=== PATIENT | female | born 2000 | race Two or more races ===

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

== ENCOUNTER 2019-01-25 06:10 | Emergency (ER) | payer OTHER ==
[~2019-01-25] VITALS: Ht 157.5 cm; Wt 96.4 kg
[2019-01-25 07:09] LABS: BASO # 0.1 10^3/uL (0.0-0.2); BASO % 0.6 % (0.0-1.0); EOS # 0.1 10^3/uL (0.0-0.50); EOS % 1.3 % (0.0-3.0); HEMATOCRIT 42.5 % (36.0-47.0); HEMOGLOBIN 13.8 g/dl (12.0-15.5); LYMPH # 2.5 10^3/uL (1.5-6.5); LYMPH % 25.4 % (24.0-44.0); MEAN CORPUSCULAR HEMOGLOBIN 28.5 pg (27.0-33.0); MEAN CORPUSCULAR HGB CONC 32.5 g/dl (32.0-36.5); MEAN CORPUSCULAR VOLUME 87.6 fl (80.0-96.0); MONO # 0.8 10^3/uL (0.0-0.8); MONO % 7.5 % (0.0-5.0); NEUTROPHILS # 6.4 10^3/uL (1.8-7.7); NEUTROPHILS % 64.7 % (36.0-66.0); PLATELET COUNT, AUTOMATED 341 10^3/uL (150-450); RED BLOOD COUNT 4.85 10^6/uL (4.00-5.40)
[2019-01-25 08:23] VITALS: BP 133/67
--- NOTE | 2019-01-25 08:26 | REP ---
Emergency first trimester obstetric sonography: History: Vaginal bleeding. Findings: Transabdominal and endovaginal scanning are performed. A sac-like structure is seen in the uterine endometrium with a mean sac size diameter of 4.1 mm. This would correspond with a 8-voow-5-day gestational age estimate. No yolk sac or embryonic pole is visible. There is a hypoechoic cyst 1.9 cm in greatest diameter in the right ovary consistent with corpus luteum. Right ovarian dimensions are 2.3 x 2.1 x 1.9 cm. Left ovary measures 2.1 x 1.4 x 1.3 cm. The left ovary is unremarkable. Doppler flow is normal in both ovaries with resistive indices measured at 0.65 on each side. Uterine dimensions are 8.8 x 4.2 x 4.5 cm. Impression: Small sac-like structure in the uterine endometrium consistent with 4-cqjj-4-day size intrauterine . viability cannot be confirmed. No embryonic pole or yolk sac is observed. Consider followup. Electronically Signed by Sean Khan MD 01/25/2019 01:03 P
== END 2019-01-25 08:39 | disposition home or self-care (01) ==
LOC: M ED 06:10
DX: O26.891 Other specified pregnancy related conditions, first trimester (principal); R10.2 Pelvic and perineal pain; O99.511 Diseases of the respiratory system complicating pregnancy, first trimester; J45.909 Unspecified asthma, uncomplicated; O99.341 Other mental disorders complicating pregnancy, first trimester; F33.9 Major depressive disorder, recurrent, unspecified; F41.9 Anxiety disorder, unspecified; F43.10 Post-traumatic stress disorder, unspecified; O99.611 Diseases of the digestive system complicating pregnancy, first trimester; K21.9 Gastro-esophageal reflux disease without esophagitis; Z88.0 Allergy status to penicillin; Z88.8 Allergy status to other drugs, medicaments and biological substances; Z3A.01 Less than 8 weeks gestation of pregnancy

== ENCOUNTER 2019-02-24 19:58 | Emergency (ER) | payer OTHER ==
[~2019-02-24] VITALS: Ht 157.5 cm; Wt 93.2 kg
[2019-02-24] MEDS ORDERED: MUPI2OI TOP (22:03)
[2019-02-24 22:24] VITALS: BP 134/79
== END 2019-02-24 22:26 | disposition home or self-care (01) ==
LOC: M ED 19:58
DX: S91.311A Laceration without foreign body, right foot, initial encounter (principal); S90.811A Abrasion, right foot, initial encounter; W26.8XXA Contact with other sharp object(s), not elsewhere classified, initial encounter; Y92.830 Public park as the place of occurrence of the external cause; Z88.0 Allergy status to penicillin; Z88.8 Allergy status to other drugs, medicaments and biological substances

== ENCOUNTER 2019-03-27 17:38 | Emergency (ER) | payer OTHER ==
[~2019-03-27] VITALS: Ht 154.9 cm; Wt 90.0 kg
[~2019-03-27 17:38] MED LIST changes: +MUPI2OI TOP
[2019-03-27] MEDS ORDERED: PREN1TAB14 (17:45)
[2019-03-27 18:36] LABS: BASO % 0.3 % (0.0-1.0); EOS # 0.1 10^3/uL (0.0-0.50); EOS % 0.4 % (0.0-3.0); HEMATOCRIT 37.9 % (36.0-47.0); HEMOGLOBIN 12.8 g/dl (12.0-15.5); LYMPH # 2.2 10^3/uL (1.5-6.5); LYMPH % 18.9 % (24.0-44.0); MEAN CORPUSCULAR HEMOGLOBIN 28.7 pg (27.0-33.0); MEAN CORPUSCULAR HGB CONC 33.8 g/dl (32.0-36.5); MONO # 0.7 10^3/uL (0.0-0.8); MONO % 6.2 % (0.0-5.0); NEUTROPHILS # 8.5 10^3/uL (1.8-7.7); NEUTROPHILS % 73.7 % (36.0-66.0); PLATELET COUNT, AUTOMATED 300 10^3/uL (150-450); RED BLOOD COUNT 4.46 10^6/uL (4.00-5.40); WHITE BLOOD COUNT 11.5 10^3/uL (4.0-10.0)
[2019-03-27 19:09] LABS: BLOOD UREA NITROGEN 4 MG/DL (7-18); CALCIUM LEVEL 8.4 MG/DL (8.5-10.1); CARBON DIOXIDE LEVEL 24 MEQ/L (21-32); CHLORIDE LEVEL 108 MEQ/L (98-107); CREATININE FOR GFR 0.49 MG/DL (0.55-1.30); GLUCOSE, FASTING 91 MG/DL (70-100); HCG, SERUM QUANTITATIVE 52196 MIU/ML; SODIUM LEVEL 140 MEQ/L (136-145)
--- NOTE | 2019-03-27 19:39 | REPVR ---
EXAM: US First Trimester, Transabdominal EXAM DATE/TIME: 03/27/2019 6:38 PM CLINICAL HISTORY: 18 years old, female; Lmp or gestational age (in weeks): [id number]; Other: Vag bleeding; TECHNIQUE: Imaging protocol: Real-time transabdominal obstetrical ultrasound of the maternal pelvis and a first trimester , less than 14 weeks 0 days, with image documentation. COMPARISON: No relevant prior studies available. FINDINGS: GESTATION: Gestation: A single intrauterine gestational sac with fetus is identified. Evaluation of anatomy is limited by age and the absence of a complete anatomic survey. Heart rate: heart rate is 162 bpm. Placenta: No subchorionic bleed. The placenta is anterior, without evidence of placenta previa. Amniotic fluid: Amniotic subjectively normal for gestational age. Head, face, and neck: The transverse diameter of the lateral ventricle of the brain is 0.49 cm. BIOMETRY: Estimated gestational age: The estimated gestational age is 13 weeks 6 days. Head circumference: The head circumference is 8.9 cm. Abdominal circumference: The abdominal circumference is 7.03 cm. Femur length: The femoral length is 1.26 cm. The femur length is 1.11 cm. MATERNAL: Uterus: No visualized uterine mass. Cervix: The cervical length is 3.18 cm. Evaluation of the cervix is limited. Right adnexa: No mass visualized. Limited evaluation. Left adnexa: No mass visualized. Limited evaluation. Intraperitoneal: No intraperitoneal free fluid. IMPRESSION: 1. A single viable intrauterine fetus is identified. 2. The estimated gestational age is 13 weeks 6 days. 3. Follow-up second trimester ultrasonography is recommended for evaluation of anatomy. Electronically signed by: Jarod Krishna On 03/27/2019 19:39:27 PM
[2019-03-27 21:11] VITALS: BP 129/79
== END 2019-03-27 21:15 | disposition home or self-care (01) ==
LOC: M ED 19:55
DX: N93.0 Postcoital and contact bleeding (principal); Z88.0 Allergy status to penicillin; Z88.8 Allergy status to other drugs, medicaments and biological substances; Z3A.13 13 weeks gestation of pregnancy

== ENCOUNTER → 2019-04-20 | Outpatient (CLI) | payer OTHER ==
[~2019-04-20] MED LIST changes: +PREN1TAB14
--- NOTE | 2019-04-20 15:54 | REP ---
Clinical: with abdominal cramping and vaginal bleeding. Technique: Transabdominal and transvaginal limited obstetrical ultrasound. Findings: Single live intrauterine is appreciated measuring at 16 weeks 6 days gestational age based on LMP with heart rate at 144 beats per minute. Anterior grade 1 placenta noted without placenta previa or abruption. Placental tip is 2.5 cm from the internal os. Amniotic fluid volume is subjectively normal. Cervix measures 3.4 - 3.7 cm in length and a prominent mucus plugs is identified at the internal os although very subtle funneling cannot definitively be excluded. Close clinical observation and reevaluation may be warranted. Impression: 1. Live intrauterine . 2. Cervix measures approximately 3.4 - 3.7 cm in length and appears closed although a prominent mucus plugs identified at the internal os and very subtle funneling cannot definitively be excluded. Close clinical observation and consideration for follow-up ultrasound may be warranted. Electronically Signed by Cody Ayoub MD 04/20/2019 03:32 P
== END ==
LOC: M RAD 14:04
PROVIDERS: ATTEND General Practice
DX: Z34.80 Encounter for supervision of other normal pregnancy, unspecified trimester (principal); Z3A.16 16 weeks gestation of pregnancy

== ENCOUNTER 2019-05-01 21:42 | Emergency (ER) | payer OTHER ==
[~2019-05-01] VITALS: Ht 154.9 cm; Wt 89.1 kg
[2019-05-02] MEDS ORDERED: ACETAMINOPHEN 325 MG TAB PO ONE (00:30)
[2019-05-02] MEDS ORDERED: diazePAM 5 MG TAB PO ONE (00:30)
[2019-05-02] MEDS ORDERED: ROLLMIS8 XX (01:48)
[2019-05-02 01:55] VITALS: BP 117/53
== END 2019-05-02 01:57 | disposition home or self-care (01) ==
LOC: M ED 21:42
DX: O99.89 Other specified diseases and conditions complicating pregnancy, childbirth and the puerperium (principal); M79.605 Pain in left leg; O99.512 Diseases of the respiratory system complicating pregnancy, second trimester; J45.909 Unspecified asthma, uncomplicated; Z88.0 Allergy status to penicillin; Z88.8 Allergy status to other drugs, medicaments and biological substances; Z3A.19 19 weeks gestation of pregnancy

== ENCOUNTER 2019-05-22 18:54 | Outpatient (CLI) | payer OTHER ==
[~2019-05-22] VITALS: Ht 154.9 cm; Wt 90.7 kg
[~2019-05-22 18:54] MED LIST changes: +ROLLMIS8 XX
[2019-05-22 19:14] VITALS: BP 129/74
[2019-05-22 20:03] LABS: HEMATOCRIT 36.1 % (36.0-47.0); HEMOGLOBIN 12.3 g/dl (12.0-15.5); MEAN CORPUSCULAR HEMOGLOBIN 28.5 pg (27.0-33.0); MEAN CORPUSCULAR HGB CONC 34.1 g/dl (32.0-36.5); MEAN CORPUSCULAR VOLUME 83.6 fl (80.0-96.0); PLATELET COUNT, AUTOMATED 339 10^3/uL (150-450); RED BLOOD COUNT 4.32 10^6/uL (4.00-5.40); WHITE BLOOD COUNT 13.6 10^3/uL (4.0-10.0)
[2019-05-22] MEDS ORDERED: MAPA500T2 PO (20:35)
--- NOTE | 2019-05-22 22:20 | HPE ---
DATE OF ADMISSION: 05/22/2019 18-year-old 1, para 0 at 21 and one weeks' had an push her in the abdomen 7 hours ago and came in with decreased movement. Risk factors BMI is 38.4, history of depression and asthma. LABORATORY DATA O+, HIV negative, hep negative, RPR negative, rubella immune. Varicella nonimmune. Urine negative. G and C are negative. Urine negative. One hour glucose is 81. PHYSICAL EXAMINATION: On examination no distress. Symphysis fundus height is appropriate. heart sounds are noted. No contractions. No vaginal bleeding or loss. Blood work: Her Betke Kleihauer is negative. Her CBC is normal. She does have a slight elevated white count, does have a history of bacterial vaginosis and being treated. Blood pressure 129/74, respirations 18, pulse 104. Temperature 97.7. After an hour being here with no evidence of contractions and adequate movement, the patient was counseled regarding decreased movement, premature rupture of membranes, labor and bleeding, when to call the provider. [facility] cent[facility] on June 09, 2019. She is encouraged to keep that appointment. All questions were answered. 20-minute discussion. Discharged undelivered.
[2019-07-10] MEDS ORDERED: ONDA-83 PO (15:34)
== END 2019-05-22 21:39 | disposition home or self-care (01) ==
LOC: EDBD → M LDO 18:54
PROVIDERS: ATTEND Obstetrics & Gynecology
DX: O36.8120 Decreased fetal movements, second trimester, not applicable or unspecified (principal); W51.XXXA Accidental striking against or bumped into by another person, initial encounter; Y92.89 Other specified places as the place of occurrence of the external cause; Y93.89 Activity, other specified; Y99.8 Other external cause status; Z3A.21 21 weeks gestation of pregnancy
CPT/HCPCS: 36415; 85027; 85460; G0378; G0463

== ENCOUNTER 2019-06-08 20:08 | Outpatient (CLI) | payer OTHER ==
[~2019-06-08] VITALS: Ht 154.9 cm; Wt 91.3 kg
[~2019-06-08 20:08] MED LIST changes: +MAPA500T2 PO
[2019-06-08 20:24] VITALS: BP 129/64
[2019-06-08 21:04] LABS: APPEARANCE, URINE CLEAR (CLEAR); BACTERIA, URINE AUTO NEGATIVE (NEGATIVE); BILIRUBIN, URINE AUTO NEGATIVE (NEGATIVE); BLOOD, URINE BLOOD NEGATIVE (NEGATIVE); COLOR, URINE YELLOW (YELLOW); GLUCOSE, URINE (UA) AUTO 1+ mg/dL (NEGATIVE); KETONE, URINE AUTO TRACE mg/dL (NEGATIVE); LEUKOCYTE ESTERASE, URINE AUTO NEGATIVE (NEGATIVE); MUCUS, URINE SMALL (NEGATIVE); NITRITE, URINE AUTO NEGATIVE (NEGATIVE); PROTEIN, URINE AUTO NEGATIVE (NEGATIVE); RBC, URINE AUTO 1 /HPF (0-3); SPECIFIC GRAVITY URINE AUTO 1.013 (1.002-1.035); SQUAMOUS EPITHELIAL CELL UR AU 3 /HPF (0-6); UROBILINOGEN, URINE AUTO 0.2 mg/dL (0.0-2.0); WBC, URINE AUTO 2 /HPF (0-3)
--- NOTE | 2019-06-08 21:27 | IPNPDOC ---
Text Note Date of Service The patient was seen on 06/08/19. NOTE patient is a 19 yo g1 @ 23+4wks gestation presents with concern for left sided abdominal cramping x 2 days. yesterday she had pain on her upper abdomen and today cramping is lower in her perineal area. denies LOF/VB. +FM. complicated by morbid obesity and hip pain. denies fever. also report having difficulty having BM about every other day. 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 no bulge noted no e/o of hernia. pelvic exam: normal external genitalia vagina: white discharge, no lesion, nt cervix visually closed, no lession,nt wet prep: neg clue cells/trich rebeca: neg yeast/hyphae doptones: 140's toco: quiet a/p patient is a 23+4wks with musculoskeletal pain, exam not concerning for labor or infection. labor precautions given. encourage increased fluids and stool softener. f/u with clinic as scheduled. DO Kate VS,Renny, I+O VS, Edsone, I+O Vital Signs Date Time Temp Pulse Resp B/P (MAP) Pulse Ox O2 Delivery O2 Flow Rate FiO2 06/08/19 20:24 98.6 120 129/64 (85) RASHMI MATT DO Jun 08, 2019 21:19
[2019-07-10] MEDS ORDERED: ONDA-83 PO (15:34)
== END 2019-06-08 21:09 | disposition home or self-care (01) ==
LOC: EDBD → M LDO 20:08
PROVIDERS: ATTEND Obstetrics & Gynecology
DX: O26.892 Other specified pregnancy related conditions, second trimester (principal); Z3A.23 23 weeks gestation of pregnancy; O99.212 Obesity complicating pregnancy, second trimester
CPT/HCPCS: 59025; 81001; 87086; G0463

== ENCOUNTER 2019-07-10 14:35 | Outpatient (CLI) | payer OTHER ==
[~2019-07-10] VITALS: Ht 152.4 cm; Wt 92.7 kg
[2019-07-10 15:02] VITALS: BP 130/71
[2019-07-10 15:22] VITALS: BP 130/74
[2019-07-10] MEDS ORDERED: NS 1,000 ML IV SCH (15:30)
[2019-07-10] MEDS ORDERED: NS 1,000 ML IV ONE (15:30)
[2019-07-10] MEDS ORDERED: ONDA4TAB5 PO (15:34)
[2019-07-10 16:26] LABS: HEMATOCRIT 35.1 % (36.0-47.0); MEAN CORPUSCULAR HEMOGLOBIN 29.2 pg (27.0-33.0); MEAN CORPUSCULAR HGB CONC 34.2 g/dl (32.0-36.5); MEAN CORPUSCULAR VOLUME 85.4 fl (80.0-96.0); PLATELET COUNT, AUTOMATED 288 10^3/uL (150-450); RED BLOOD COUNT 4.11 10^6/uL (4.00-5.40); WHITE BLOOD COUNT 13.1 10^3/uL (4.0-10.0)
[2019-07-10 16:27] VITALS: BP 131/82
[2019-07-10 16:46] LABS: ALBUMIN 2.8 GM/DL (3.2-5.2); ALT/SGPT 17 U/L (12-78); BILIRUBIN,TOTAL 0.2 MG/DL (0.2-1.0); BLOOD UREA NITROGEN 1 MG/DL (7-18); CALCIUM LEVEL 8.7 MG/DL (8.5-10.1); CARBON DIOXIDE LEVEL 22 MEQ/L (21-32); CHLORIDE LEVEL 109 MEQ/L (98-107); CREATININE FOR GFR 0.42 MG/DL (0.55-1.30); GLUCOSE, FASTING 80 MG/DL (70-100); POTASSIUM SERUM 3.8 MEQ/L (3.5-5.1); SODIUM LEVEL 140 MEQ/L (136-145); TOTAL PROTEIN 6.3 GM/DL (6.4-8.2)
[2019-07-10 17:50] VITALS: BP 134/76
[2019-07-10] MEDS ORDERED: METOCLOPRAMIDE INJ 10MG/2ML VIAL (J2765) IV ONE (18:15)
[2019-07-10 18:52] VITALS: BP 111/51
--- NOTE | 2019-07-13 09:32 | IPN ---
DATE OF SERVICE: 07/10/2019 This lady is a 18-year-old, 1, para 0, last menstrual period (LMP) 12/12/2018, expected date of confinement (EDC) by early ultrasound at 7 weeks 5 days of 09/29/2018. Her risk factors is she had obesity with her body mass index (BMI) at 38.4, asthma, history of depression, she self refers to behavioral health, and she has cholelithiasis with upper quadrant pain and had seen general surgery who recommended she have her cholecystectomy and she is Varicella nonimmune. Presently, she says she has allergies to PENICILLIN and MIRALAX. She is taking antinausea medication which she says does not work. Her lab values show she is O positive, HIV negative, hepatitis negative, RPR negative, rubella immune, Varicella nonimmune. Urine was negative. Gonorrhea and Chlamydia were negative. Her early one hour glucose was 81. Presently, she has come in because of nausea and vomiting and inability to keep anything down. Vital Signs: Her blood pressure is 111/51, respirations 16, pulse 100, temperature 99.1. Initial urine was 1.015, pH 6, 2+ ketones. She says the Zofran, Phenergan and the Reglan do not work for her. Otherwise, she appears to be in no acute distress; however, she has not had anything to eat or drink and she is significantly behind in fluids. The rest of the examination is unremarkable. She is normocephalic, atraumatic. Neck full range of motion. Pupils equal and reactive to light. Distal pulses are symmetric. No evidence of deep vein thrombosis (DVT), pulmonary embolism (PE) or superficial phlebitis. Chest is clear bilaterally to bases. No rashes, lesions or pruritus. No arthralgia or myalgia. No complaint of cough, wheeze, shortness of breath. She does have nausea. She has had some vomiting. No diarrhea or constipation. She presently has a Category 1 strip. Denies any vaginal loss or bleeding. She has moderate variability on her nonstress test. Baseline is normal. Accelerations are noted. No decelerations. No contractions. We reviewed with her the plan of care. We elected to give her Krames low fat diet. She says it does not matter, no matter what she takes she is going to throw it up whether she follows the diet or not. We did explain to her that she is significantly dehydrated and that she has ketones in her urine and that it will take at least one bag if not two in order to flush her system of ketones. We also offered her some Reglan and some crackers and water in order to see if she keeps that down. She expressed wanting to order a salad, which we said that is fine. However, on returning, she was eating Swiss fries and was throwing them up because they did not agree with her. Her hemoglobin is 12.0, hematocrit 35.1 and platelets are 288. Her chemistry indicates that her sodium and potassium are normal. Her chloride is low at 109. BUN is low at 1. Alkaline phosphatase is elevated, probably related to her gallstones. Albumin globulin ratio low. We explained to her that we will flush her system with normal saline. Can administer some Reglan in order to help with the nausea and vomiting. When she is feeling better, we can discharge her to followup with her provider and/or continue with the proposed Krames low fat diet. The patient expressed understanding and we await her urine to be clear. In summary, we have a 28 plus week gestation with cholecystitis and nausea and vomiting secondary to dehydration.
== END 2019-07-10 22:30 | disposition home or self-care (01) ==
LOC: M LDO 14:35
PROVIDERS: ATTEND Obstetrics & Gynecology
DX: O21.2 Late vomiting of pregnancy (principal); O99.283 Endocrine, nutritional and metabolic diseases complicating pregnancy, third trimester; E86.0 Dehydration; O99.613 Diseases of the digestive system complicating pregnancy, third trimester; K81.9 Cholecystitis, unspecified; Z3A.28 28 weeks gestation of pregnancy
CPT/HCPCS: 59025; 80053; 85027; 96361; 96374; G0378; G0463; J2765

== ENCOUNTER 2019-07-20 11:09 | Outpatient (CLI) | payer OTHER ==
[~2019-07-20] VITALS: Ht 152.4 cm; Wt 90.4 kg
[~2019-07-20 11:09] MED LIST changes: +ONDA4TAB5 PO
[2019-07-20 11:26] VITALS: BP 120/73
[2019-07-20] MEDS ORDERED: MAPA500T2 PO (11:33)
[2019-07-20 12:33] LABS: APPEARANCE, URINE CLEAR (CLEAR); BACTERIA, URINE AUTO 1+ (NEGATIVE); BILIRUBIN, URINE AUTO NEGATIVE (NEGATIVE); BLOOD, URINE BLOOD NEGATIVE (NEGATIVE); COLOR, URINE YELLOW (YELLOW); GLUCOSE, URINE (UA) AUTO NEGATIVE (NEGATIVE); KETONE, URINE AUTO 1+ mg/dL (NEGATIVE); LEUKOCYTE ESTERASE, URINE AUTO TRACE (NEGATIVE); MUCUS, URINE SMALL (NEGATIVE); NITRITE, URINE AUTO NEGATIVE (NEGATIVE); PROTEIN, URINE AUTO NEGATIVE (NEGATIVE); RBC, URINE AUTO 2 /HPF (0-3); SPECIFIC GRAVITY URINE AUTO 1.013 (1.002-1.035); SQUAMOUS EPITHELIAL CELL UR AU 5 /HPF (0-6); UROBILINOGEN, URINE AUTO 0.2 mg/dL (0.0-2.0); WBC, URINE AUTO 4 /HPF (0-3)
--- NOTE | 2019-07-20 13:38 | IPNPDOC ---
Text Note Date of Service The patient was seen on 07/20/19. NOTE patient is a 19 yo G1 @ 29+6wks presents for lower abdominal cramping x 2 days. report increased discharge. denies LOF/VB. +FM. vitals:normal nad abd: gravid, soft, nt fht: reactive toco: quiet speculum exam: white discharge, not lesion, nt cervix visually closed CE: closed/long/high, posterior wet prep: neg clue cells/trich rebeca: neg buds/hyphae a/p patient @ 29+6wks, normal exam today. no e/o infection or labor. UA with c&s pending. f/u in clinic as scheduled. Kate, VS,Renny, I+O VS, Renny, I+O Vital Signs Date Time Temp Pulse Resp B/P (MAP) Pulse Ox O2 Delivery O2 Flow Rate FiO2 07/20/19 11:26 134 120/73 (89) 07/20/19 11:25 98.4 20 RASHMI MATT DO Jul 20, 2019 13:38
== END 2019-07-20 12:22 | disposition home or self-care (01) ==
LOC: M LDO 11:09
PROVIDERS: ATTEND Obstetrics & Gynecology
DX: O26.893 Other specified pregnancy related conditions, third trimester (principal); N89.8 Other specified noninflammatory disorders of vagina
CPT/HCPCS: 81001; 87086; G0378; G0463

== ENCOUNTER → 2019-08-13 | Outpatient (CLI) | payer OTHER ==
--- NOTE | 2019-08-13 14:16 | REP ---
Clinical: well-being Comparison: 04/20/2019 . Findings: Examination demonstrates a single live intrauterine in cephalic presentation. motion is identified by technologist. Placenta is noted anterior and grade I I I without evidence for placenta previa or abruption. Amniotic fluid volume is normal. Cervix appears closed. No evidence for nuchal cord. Gestational age by LMP 33 weeks 2 days with ALYSSA 09/29/2019 . FHR equals 147 beats per minute. Biophysical profile score: 8/8 Amniotic fluid index: 13.8 cm Umbilical cord SD ratio: 2.48 Impression: Single live advanced gestation in cephalic presentation. Biophysical profile score and amniotic fluid volume are normal. Electronically Signed by Cody Ayoub MD 08/13/2019 02:07 P
== END ==
LOC: M RAD 13:26
PROVIDERS: ATTEND Obstetrics & Gynecology
DX: O24.419 Gestational diabetes mellitus in pregnancy, unspecified control (principal); Z3A.33 33 weeks gestation of pregnancy

== ENCOUNTER 2019-08-14 19:45 | Outpatient (CLI) | payer OTHER ==
[~2019-08-14] VITALS: Ht 152.4 cm; Wt 95.0 kg
[2019-08-14 19:59] VITALS: BP 136/81
--- NOTE | 2019-08-14 21:11 | IPNPDOC ---
Text Note Date of Service The patient was seen on 08/14/19. NOTE patient is a 19 yo G1 @ 33+3wks gestation presents with concern for lower abdominal cramping x 2 days. report comes in waves and goes away on its own. worse when she is up and about. denies LOF/VB. +FM. vitals: normal NAD abd: gravid, soft, mild tenderness to palpation above pubic symphysis LE: no edema/erythema/tenderness speculum exam: white frothy discharge cervix without bleeding, no lesion, visually closed ce: closed/long/high, soft, posterior fht: 145/mod miguel/pos accel/no decel toco: occasional ctx which patient did not feel wet prep: pos. clue cells. neg trich rebeca: neg buds/neg hyphae dipped UA: neg for infection a/p patient @33+3wks with normal cramping, not in labor. exam shows clue cells. will treat for BV. give one dose tonight. rest of medications to be picked up at [place]. DO Kate VSRenny, I+O VS, Edsone, I+O Vital Signs Date Time Temp Pulse Resp B/P (MAP) Pulse Ox O2 Delivery O2 Flow Rate FiO2 08/14/19 19:59 98.4 110 18 136/81 (99) RASHMI MATT DO Aug 14, 2019 21:10
[2019-08-14] MEDS ORDERED: metroNIDAZOLE (FLAGYL) 500 MG TAB PO ONE (22:00)
== END 2019-08-14 21:28 | disposition home or self-care (01) ==
LOC: M LDO 19:45
PROVIDERS: ATTEND Obstetrics & Gynecology
DX: O26.893 Other specified pregnancy related conditions, third trimester (principal); R10.30 Lower abdominal pain, unspecified; O23.599 Infection of other part of genital tract in pregnancy, unspecified trimester; B96.89 Other specified bacterial agents as the cause of diseases classified elsewhere; Z3A.33 33 weeks gestation of pregnancy
CPT/HCPCS: 59025; G0378; G0463

== ENCOUNTER 2019-08-30 14:13 | Outpatient (CLI) | payer OTHER ==
[~2019-08-30] VITALS: Ht 152.4 cm; Wt 94.9 kg
[2019-08-30 14:46] VITALS: BP 134/75
[2019-08-30 15:59] LABS: APPEARANCE, URINE HAZY (CLEAR); BACTERIA, URINE AUTO 1+ (NEGATIVE); BILIRUBIN, URINE AUTO NEGATIVE (NEGATIVE); BLOOD, URINE BLOOD NEGATIVE (NEGATIVE); COLOR, URINE YELLOW (YELLOW); GLUCOSE, URINE (UA) AUTO NEGATIVE (NEGATIVE); KETONE, URINE AUTO TRACE mg/dL (NEGATIVE); LEUKOCYTE ESTERASE, URINE AUTO TRACE (NEGATIVE); NITRITE, URINE AUTO NEGATIVE (NEGATIVE); PROTEIN, URINE AUTO NEGATIVE (NEGATIVE); RBC, URINE AUTO 2 /HPF (0-3); SPECIFIC GRAVITY URINE AUTO 1.027 (1.002-1.035); SQUAMOUS EPITHELIAL CELL UR AU 8 /HPF (0-6); UROBILINOGEN, URINE AUTO 0.2 mg/dL (0.0-2.0); WBC, URINE AUTO 5 /HPF (0-3)
[2019-08-30] MEDS ORDERED: INSUN SC (16:12)
[2019-08-30] MEDS ORDERED: INSUR SC ×2 (16:12)
[2019-08-30 16:16] VITALS: BP 119/76
--- NOTE | 2019-08-30 17:02 | IPNPDOC ---
Text Note Date of Service The patient was seen on 08/30/19. NOTE S: Ms. Serrano is a 19yo at 35+5wks gestation (by 1st trimester US) presents to LND triage with c/o cramping and malodorous discharge/mucous. She was evaluated in the OB clinic today for APFT and COB visit. She had a reactive NST then and her appointment was uneventful. She states she did mention her concerns, but was not evaluated for them then and she is concerned. She does reports +FM, denies LOF/VB/CTX. I did observe her urine sample, which was very dark yellow, and I asked about her hydration status. She reports that she does not like to drink water and has only had a few cups today. Ms. Serrano's is complicated by A2GDM on insulin, obesity, depression, asthma, and gallstones. O: VSS FHR 150s, moderate variability, + accels, no decels noted CTX: few noted on tracing (pt did not notice any); uterine irritability present, but resolving with hydration SSE: Cervix visually closed; some white discharge and clear mucous present; sample collected for WP and GC Urine: dark yellow - sent to lab for UA/UC WP: no clue cells or yeast present UA: +ketones, trace leukocytes, no nitrites, + WBCs A: Reactive NST, not in labor, no yeast/clue cells; Dehydration, poor hygiene P: Discharged home with PTL/danger precautions Discussed at length importance of hydration and nutrition. Encouraged pt to purchase reusable 1L bottle to frequently refill throughout the day. Discussed importance of adequate hygiene; provided pt with peribottle and instructions for use reviewed GS scheduled for [id number]; f/u APFT and COB in 1 week VS,Fishbone, I+O VS, Fishbone, I+O Vital Signs Date Time Temp Pulse Resp B/P (MAP) Pulse Ox O2 Delivery O2 Flow Rate FiO2 08/30/19 16:16 97.8 78 18 119/76 (90) 08/30/19 14:46 99 MICHELLE FISHER CNM Aug 30, 2019 17:02
[2019-08-30 17:29] LABS: CHLAMYDIA DNA AMPLIFICATION NEGATIVE (NEGATIVE); GC DNA AMPLIFICATION NEGATIVE (NEGATIVE)
== END 2019-08-30 16:21 | disposition home or self-care (01) ==
LOC: EDBD → M LDO 14:13
PROVIDERS: ATTEND Registered Nurse Maternal Newborn
DX: O24.414 Gestational diabetes mellitus in pregnancy, insulin controlled (principal); O99.213 Obesity complicating pregnancy, third trimester; E66.9 Obesity, unspecified; O99.343 Other mental disorders complicating pregnancy, third trimester; F32.9 Major depressive disorder, single episode, unspecified; O99.513 Diseases of the respiratory system complicating pregnancy, third trimester; J45.909 Unspecified asthma, uncomplicated; O99.283 Endocrine, nutritional and metabolic diseases complicating pregnancy, third trimester; E86.0 Dehydration; R46.0 Very low level of personal hygiene; Z3A.35 35 weeks gestation of pregnancy
CPT/HCPCS: 59025; 81001; 87086; 87210; 87491; 87591; G0378; G0463

== ENCOUNTER 2019-08-31 21:58 | Outpatient (CLI) | payer OTHER ==
[~2019-08-31] VITALS: Ht 152.4 cm; Wt 94.7 kg
[~2019-08-31 21:58] MED LIST changes: +INSUN SC; +INSUR SC
[2019-08-31 22:17] VITALS: BP 146/85
[2019-08-31] MEDS ORDERED: LR 1,000 ML IV ONE (22:30)
[2019-08-31 22:54] LABS: BASO % 0.3 % (0.0-1.0); EOS % 0.3 % (0.0-3.0); HEMATOCRIT 38.2 % (36.0-47.0); HEMOGLOBIN 12.2 g/dl (12.0-15.5); LYMPH # 2.7 10^3/uL (1.5-5.0); LYMPH % 17.3 % (24.0-44.0); MEAN CORPUSCULAR HEMOGLOBIN 26.5 pg (27.0-33.0); MEAN CORPUSCULAR HGB CONC 31.9 g/dl (32.0-36.5); MEAN CORPUSCULAR VOLUME 82.9 fl (80.0-96.0); MONO % 6.6 % (0.0-5.0); NEUTROPHILS # 11.7 10^3/uL (1.5-8.5); NEUTROPHILS % 74.7 % (36.0-66.0); PLATELET COUNT, AUTOMATED 263 10^3/uL (150-450); RED BLOOD COUNT 4.61 10^6/uL (4.00-5.40); WHITE BLOOD COUNT 15.6 10^3/uL (4.0-10.0)
[2019-08-31 22:56] VITALS: BP 144/67
[2019-08-31 23:26] LABS: ALBUMIN 2.9 GM/DL (3.2-5.2); ALT/SGPT 16 U/L (12-78); BILIRUBIN,TOTAL 0.2 MG/DL (0.2-1.0); BLOOD UREA NITROGEN 5 MG/DL (7-18); CALCIUM LEVEL 8.5 MG/DL (8.5-10.1); CARBON DIOXIDE LEVEL 22 MEQ/L (21-32); CHLORIDE LEVEL 109 MEQ/L (98-107); CREATININE FOR GFR 0.63 MG/DL (0.55-1.30); GLUCOSE, FASTING 95 MG/DL (70-100); SODIUM LEVEL 140 MEQ/L (136-145); TOTAL PROTEIN 6.6 GM/DL (6.4-8.2)
[2019-09-01 01:32] VITALS: BP 135/71
[2019-09-01 04:29] VITALS: BP 133/79
--- NOTE | 2019-09-01 04:36 | IPNPDOC ---
Text Note Date of Service The patient was seen on 09/01/19. NOTE patient is a 19 yo G1 @ 36WKS gestation presents to triage with regular cont ractions. denies LOF/VB. +FM. vitals: mild range at beginning with normal repeats. nad abd: gravid, soft, nt, cephalic by lj le: no edema/erythema/tenderness fht: 130/mod miguel/pos accel/no decel toco: ctx q 3-5mins ce: 50/-1, (unchanged over 6hrs while in triage) a/p patient is @ 36wks, not in labor. discussed s/s to come back for recheck. f/u with scheduled clinic visits otherwise. VS,Fishbone, I+O VS, Fishbone, I+O Laboratory Tests 08/31/19 22:47 Vital Signs Date Time Temp Pulse Resp B/P (MAP) Pulse Ox O2 Delivery O2 Flow Rate FiO2 08/31/19 22:56 100 18 144/67 (92) 08/31/19 22:17 98.5 RASHMI MATT DO Sep 01, 2019 04:36
== END 2019-09-01 04:40 | disposition home or self-care (01) ==
LOC: EDBD → M LDO 21:58 → M LDI 22:29 → UNDOADMIN 22:29 → M LDI 22:29 → M LDO 09-01 04:40 → UNDODISIN 09-01 04:40
PROVIDERS: ATTEND Obstetrics & Gynecology
DX: O60.03 Preterm labor without delivery, third trimester (principal); Z3A.36 36 weeks gestation of pregnancy
CPT/HCPCS: 36415; 59025; 80053; 85025; 86850; 86900; 86901; G0378; G0463

== ENCOUNTER 2019-09-02 11:51 | Outpatient (CLI) | payer OTHER ==
[~2019-09-02] VITALS: Ht 152.4 cm; Wt 97.0 kg
[2019-09-02] MEDS ORDERED: LACTATED RINGER'S 1000 ML IV STA (12:30)
[2019-09-02] MEDS ORDERED: BUTORPHANOL 2 MG/ML INJ (J0595) IV PRN (12:30)
[2019-09-02] MEDS ORDERED: LR 1,000 ML IV SCH (13:00)
--- NOTE | 2019-09-02 13:07 | HPEPDOC ---
Obstetrical History & Physical General Date of Admission 09/02/2019 History of Present Illness Domo is a 19yo with SIUP at 36w1d by lmp c/w 7wk u/s presenting with painful regular ctx. She was seen in L&D triage on Tuesday and had no cervical policy change clerk 6hr, /[address] Love. She states that since that time, ctx spaced out for quite a while, but over the last few hours have become closer together and more painful. No LOF, no vaginal bleeding. Good movement. No f/c/n/v/CP/SOB. Notably, patient has A2GDM and last took her blood glucose level and last gave herself insulin yesterday morning. Chief Complaint: Contractions, pre-term Information Provided By: Patient Care Care: Good Care Dating Final EDC: Sep 29, 2019 Final EDC by: LMP, 1st trimester (US) Antepartum Course Diagnos(e)s A2GDM requiring insulin, obesity with starting BMI 38, mild-intermittent asthma, depression seeing , varicella non-immune, gallstones Height (inches): 62 Pre- weight (lbs.): 210 Admission Weight (lbs.): 207 Change in Weight (lbs.): -3 Past Medical History Past Obstetrical History : Past Obstetrical History: Primgravida SHANK TAPER History: No pertinent history Past Medical History Medical History Obesity with starting BMI 38, mild-intermittent asthma, depression seeing , gallstones Surgical History: Denies/None Family History Significant Family History: No pertinent family hx Social History Marital Status: Family situation: Spouse/partner home Psychosocial History: Depression * Smoker: non-smoker Alcohol: Denies Drugs: denies Imunizations Tdap status: current Influenza Status: declined Allergies Coded Allergies: Penicillins (Verified Allergy, Intermediate, hives, 05/01/19) latex (Verified Allergy, Mild, itching, 08/30/19) pt reports itching with certain latex products polyethylene glycol 3350 (Verified Adverse Reaction, Mild, vomit, 05/01/19) Medications Scheduled Acetaminophen (Mapap) 500 Mg Tablet, 1,000 MG PO PRN Insulin Human NPH (Novolin N) 100 Unit/1 Ml Vial, 16 UNITS SC QAM Insulin Human Regular (Novolin R) 100 Unit/1 Ml Vial, 8 UNITS SC QAM Insulin Human Regular (Novolin R) 100 Unit/1 Ml Vial, 6 UNITS SC QPM Miscellaneous Medications Vits96/Iron Fum/Folic ( Tablet) 1 Each Tablet Physical Examination Physical Examination GENERAL: Alert and oriented times three. ABDOMEN: Gravid and non-tender to touch. FETUS: Is vertex (VTX) by sterile vaginal examination (SVE) EXTREMITIES: No edema Pertinent Laboratoy Data Blood Type: O+ RBC Antibody Screen: Negative HIV: Negative Hepatitis B: Negative ( ) Hepatitis C: Unknown Rapid Plasma Reagin: Nonreactive Rubella: Immune Varicella: Nonreactive Chlamydia/Gonorrhea: Unknown Group B Streptococcus: Negative Quad Screen Test: Negative ([id number] wnl, male fetus) Cystic Fibrosis: Negative Anatomy Ultrasound Ultrasound Date: May 15, 2019 Placenta Location: Anterior Normal Anatomy: Yes Placenta Previa: No Steroid Therapy Steroid Therapy: No Vaginal Examination Dilation: 4 cm Effacement: 70% Station: -2 Cervical Consistency: Medium Cervical Position: Middle Presentation: Cephalic presentation Assessment Heart Rate (FHR): 140 Variability: Moderate Accelerations: Positive Decelerations: None Tocometer Contractions: Yes Frequency: irregular, every 2-5 min. Duration: greater than 60 seconds Strength: palpated as moderate Assessment/Plan Assessment Domo is a 19yo with SIUP at 36w1d by lmp c/w 7wk u/s in latent labor based on SCE 4/75/-2 which is a change from 3/50/-1 about 48hr prior. Cat I FHRT, irregular ctx pattern q1-5min. Cephalic by SCE. Initial bp was mild range 90's diastolic which now meets criteria for GHTN based on initial elevated bp on Tuesday. No sx of pre-E. GBS negative. It is concerning that patient has not checked her glucose level or given herself insulin in more than 24hr. PMhx/ course significant for: A2GDM requiring insulin, obesity with starting BMI 38, mild-intermittent asthma, depression seeing BH, varicella non- immune, gallstones Plan Admit and orient. Sales Representative Education Courses and consent. Diet: clear liquids Group B Streptococcus (GBS) negative Labs and intravenous (IV) per unit protocol. Also urine protein/creatinine and pre-E profile. And G/C DNA. Lactated Ringers (LR): Bolus 1000 mL, then at 125 mL/hr. Betamethasone 12mg IM x1 Discussed with patient that because she is pre-term, I cannot augment her labor unless there are signs of NRFHT. Otherwise, she must progress on her own. Fingerstick glucose levels q2hr in latent labor and q1hr in active labor Stadol 2mg IV q4hr prn pain. If she progresses into active labor, she will be a candidate for epidural. MD Nicole Bush Katrina D MD Sep 02, 2019 13:02
[2019-09-02] MEDS ORDERED: BETAMETHASONE SOLUSPAN 6MG/ML INJ 5ML (J0702) IM SCH (14:00)
[2019-09-02 14:09] LABS: HEMATOCRIT 35.8 % (36.0-47.0); HEMOGLOBIN 11.8 g/dl (12.0-15.5); MEAN CORPUSCULAR HEMOGLOBIN 27.2 pg (27.0-33.0); MEAN CORPUSCULAR VOLUME 82.5 fl (80.0-96.0); PLATELET COUNT, AUTOMATED 243 10^3/uL (150-450); RED BLOOD COUNT 4.34 10^6/uL (4.00-5.40); WHITE BLOOD COUNT 13.9 10^3/uL (4.0-10.0)
[2019-09-02 14:30] LABS: TOTAL PROTEIN,RANDOM URINE 26.1 MG/DL (0.0-12.0)
[2019-09-02 14:41] LABS: ALT/SGPT 17 U/L (12-78); BILIRUBIN,TOTAL 0.3 MG/DL (0.2-1.0); CREATININE FOR GFR 0.65 MG/DL (0.55-1.30); LDH LACTATE DEHYDROGENASE 259 U/L (84-246); URIC ACID 4.2 MG/DL (2.6-6.0)
[2019-09-02 15:35] LABS: CHLAMYDIA DNA AMPLIFICATION NEGATIVE (NEGATIVE); GC DNA AMPLIFICATION NEGATIVE (NEGATIVE)
--- NOTE | 2019-09-02 16:25 | IPNPDOC ---
Text Note Date of Service The patient was seen on 09/02/19. NOTE Intrapartum Note Patient reports her ctx are very strong and she is miserable, but there is still no regular pattern. Her mother would like to know if she has dilated at all b ecause she "needs to leave for [facility]". Patient desires to eat. 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 I am unable to augment since she is pre-term Consistent carb diet written for Glucose fingersticks changed to QID (fasting and 1hr postprandial) Will continue to observe overnight and re-evaluate in the morning Stadol 2mg q4hr prn Dr. Analisa Rivera MD VS,Renny, I+O VS, Renny, I+O Laboratory Tests 09/02/19 13:43 Analisa Rivera MD Sep 02, 2019 16:25
[2019-09-03 04:01] VITALS: BP 116/71
[2019-09-03 07:11] VITALS: BP 132/72
--- NOTE | 2019-09-03 08:26 | IPNPDOC ---
Text Note Date of Service The patient was seen on 09/03/19. NOTE Decision for discharge Domo did well overnight and was able to sleep because contractions spaced out. She was not initiated on her insulin regimen and remained controlled with postprandial dinner value normal and fasting this morning 96. She has had no LOF or vaginal bleeding. Good movement. Vitals wnl, afebrile SCE repeated this morning unchanged 4/75/-2 Cat I FHRT with +accels, -decels, mod miguel [place]: irreg ctx Assessment: No evidence of active labor after >18hr of observation with unchanged SCE. Plan to discharge home this morning Follow up in office as scheduled this week Discussed return precautions at length Dr. Analisa Rivera MD VS,Renny, I+O VS, Renny, I+O Laboratory Tests 09/02/19 13:43 Vital Signs Date Time Temp Pulse Resp B/P (MAP) Pulse Ox O2 Delivery O2 Flow Rate FiO2 09/03/19 07:11 97.9 66 18 132/72 (92) Analisa Rivera MD Sep 03, 2019 08:26
== END 2019-09-03 08:40 | disposition home or self-care (01) ==
LOC: EEVIPCON 11:51 → EDBD 11:51 → M LDO 11:51
PROVIDERS: ATTEND Obstetrics & Gynecology
DX: O47.03 False labor before 37 completed weeks of gestation, third trimester (principal); O13.3 Gestational [pregnancy-induced] hypertension without significant proteinuria, third trimester; Z3A.36 36 weeks gestation of pregnancy; O24.414 Gestational diabetes mellitus in pregnancy, insulin controlled; O99.213 Obesity complicating pregnancy, third trimester; E66.9 Obesity, unspecified; Z68.38 Body mass index [BMI] 38.0-38.9, adult; O99.513 Diseases of the respiratory system complicating pregnancy, third trimester; J45.20 Mild intermittent asthma, uncomplicated; O99.343 Other mental disorders complicating pregnancy, third trimester; F32.9 Major depressive disorder, single episode, unspecified; Z87.19 Personal history of other diseases of the digestive system; Z88.0 Allergy status to penicillin; Z88.8 Allergy status to other drugs, medicaments and biological substances; Z91.040 Latex allergy status
CPT/HCPCS: 59025; 82247; 82565; 82570; 83615; 84156; 84450; 84460; 84550; 85027; 86780; 86850; 86900; 86901; 87491; 87591; 96372; G0378; G0463; J0702

== ENCOUNTER 2019-09-04 05:45 | Outpatient (CLI) | payer OTHER ==
[2019-09-04 06:02] VITALS: BP 129/74
--- NOTE | 2019-09-04 07:40 | IPNPDOC ---
Text Note Date of Service The patient was seen on 09/04/19. NOTE 19 yo at 36+3 weeks gestation presented to L&D with the complaint of panful contractions and leakage of fluid. She was on her birthing ball this morning and noticed it was wet when she got off it. She was unsure if she had accidentally urinated or if her amniotic sac was leaking. She continues to have contractions. She has been observed multiple times on L&D over the last several days for contractions. Most recent cervical exam was yesterday morning and was 4/75/-2. Today she denies any bleeding, fevers/chills, SOB, chest pain, or headaches. She endorses excellent movement. Chaperoned by L&D RN Vitals - VSS, afebrile, normotensive, non tachycardic General - AAOX3, sitting up in bed, NAD Abdomen - Gravid uterus, no fundal tenderness Pelvic exam - Normal external genitalia. Speculum inserted into the vagina and the cervix was visualized. Small amount of white discharge seen in vaginal vault. Swabs obtained for nitrazine and ferning. Speculum removed. Cervix: 4/80/-2 to digital exam. Ferning slide - negative Nitrazine - Negative FHR tracing - Cat I with moderate variability, +accels, no decels, sporadic ctx on toco. Cervix unchanged from yesterday morning's exam at discharge. No evidence of ruptured membranes. I offered Domo to recheck her cervix in 2 hours to asses for change but she declined. She has an appointment with me tomorrow. Follow up sooner for any urgent concerns. All questions answered. DO TREVA Payton Fishbone, I+O VS, Weibone, I+O Vital Signs Date Time Temp Pulse Resp B/P (MAP) Pulse Ox O2 Delivery O2 Flow Rate FiO2 09/04/19 06:02 87 129/74 (92) 09/04/19 06:01 98.4 20 JUANA JACKSON DO Sep 04, 2019 07:40
== END 2019-09-04 06:59 | disposition home or self-care (01) ==
LOC: M LDO 05:45
PROVIDERS: ATTEND Obstetrics & Gynecology
DX: O47.03 False labor before 37 completed weeks of gestation, third trimester (principal); Z3A.36 36 weeks gestation of pregnancy
CPT/HCPCS: 59025; G0378; G0463

== ENCOUNTER 2019-09-06 15:36 | Outpatient (CLI) | payer OTHER ==
[~2019-09-06] VITALS: Ht 152.4 cm; Wt 99.3 kg
[2019-09-06 15:57] VITALS: BP 146/88
[2019-09-06 16:13] VITALS: BP 136/83
[2019-09-06 16:28] VITALS: BP 135/81
[2019-09-06 17:05] LABS: CREATININE,RANDOM URINE 40.6 MG/DL; TOTAL PROTEIN,RANDOM URINE 10.2 MG/DL (0.0-12.0)
[2019-09-06 17:20] LABS: ALT/SGPT 24 U/L (12-78); BILIRUBIN,TOTAL 0.2 MG/DL (0.2-1.0); CREATININE FOR GFR 0.48 MG/DL (0.55-1.30); LDH LACTATE DEHYDROGENASE 153 U/L (84-246); URIC ACID 3.5 MG/DL (2.6-6.0)
[2019-09-06 17:52] LABS: HEMATOCRIT 34.9 % (36.0-47.0); HEMOGLOBIN 11.3 g/dl (12.0-15.5); MEAN CORPUSCULAR HGB CONC 32.4 g/dl (32.0-36.5); MEAN CORPUSCULAR VOLUME 83.5 fl (80.0-96.0); PLATELET COUNT, AUTOMATED 214 10^3/uL (150-450); RED BLOOD COUNT 4.18 10^6/uL (4.00-5.40); WHITE BLOOD COUNT 10.2 10^3/uL (4.0-10.0)
--- NOTE | 2019-09-06 19:37 | IPNPDOC ---
Text Note Date of Service The patient was seen on 09/06/19. NOTE S: Ms. Murphy is a 19yo at 36+5wks who was sent from clinic for BP mo nitoring and Pre-E labs. She reports +FM and irregular contractions; she denies LOF/VB. She reports FUNES all day - states she took 1g tylenol this morning and it resolved, but it has now returned; she denies RUQ pain/visual disturbances. O: BP: Initial BP was 146/88; repeats were all WNL (130s/80s); she is noted to have mild range BPs during her triage visits on 08/31 and 09/02; at this time she rules in for GHTN Vitals: afebrile, non tachycardic, stable FHR 150s, moderate variability, + accels, no decels noted CTX: none on monitor Pre-E labs WNL, PC ratio 0.25 A/P: Reactive NST, Category I; reassuring status Gestational Hypertension - Pt to return to LND [id number] at 37+0wks for IOL Discharged home at this time with Strict Pre-E precautions; PTL/Labor precautions reviewed VS,Fishbone, I+O VS, Fishbone, I+O Laboratory Tests 09/06/19 16:39 09/06/19 17:35 Vital Signs Date Time Temp Pulse Resp B/P (MAP) Pulse Ox O2 Delivery O2 Flow Rate FiO2 09/06/19 16:28 96 135/81 (99) 09/06/19 15:57 98.0 16 MICHELLE FISHER CNM Sep 06, 2019 19:37
== END 2019-09-06 18:03 | disposition home or self-care (01) ==
LOC: M LDO 15:36
PROVIDERS: ATTEND Registered Nurse Maternal Newborn
DX: O13.3 Gestational [pregnancy-induced] hypertension without significant proteinuria, third trimester (principal); Z3A.36 36 weeks gestation of pregnancy; Z36.89 Encounter for other specified antenatal screening; Z88.0 Allergy status to penicillin; Z88.8 Allergy status to other drugs, medicaments and biological substances; Z91.040 Latex allergy status
CPT/HCPCS: 36415; 59025; 76811; 76820; 82247; 82565; 82570; 83615; 84156; 84450; 84460; 84550; 85027; G0378; G0463

== ENCOUNTER → 2019-09-06 | Outpatient (CLI) | payer OTHER ==
--- NOTE | 2019-09-06 12:36 | REP ---
OBSTETRIC SONOGRAPHY: HISTORY: Third trimester gestational diabetes. FINDINGS: Scanning through the gravid uterus demonstrates a viable single intrauterine gestation in a cephalic lie. motion is observed and heart rate is recorded at 160-180 beats per minute. An anterior grade 3 placenta is seen without evidence of previa or abruption. Amniotic fluid is subjectively normal. Closed cervical length could not be measured transabdominally due to low head position. The patient reports that she is known to be dilated and effaced 5 cm/80%. No extrauterine abnormalities observed. Exam quality is inhibited by crowding and maternal body habitus. cranium, choroid plexus, cavum, diaphragm, left-sided stomach, kidneys, bladder, and spine are seen and are unremarkable today. Biometry Chart: BPD 8.4 cm = 33 weeks 5 days HC 30.0 cm = 33 weeks 2 days AC 34.9 cm = 38 weeks 6 days FL 6.7 cm = 34 weeks 5 days HL 6.1 cm = 35 weeks 3 days HC/AC ratio 0.86 (0.92-1.11). Cephalic index normal 0.79. Estimated weight 2982 grams/6 pounds 9 ounces/51st percentile for 36 weeks 5 days. HOWARD 10.8 cm (7.6 24.6 cm). Biophysical profile score 8/8. S/D ratio normal 1.87. IMPRESSION: Viable single intrauterine gestation at 35 weeks 1 day by today's composite sonographic criteria. Expected gestational age estimate based on prior sonography is 37 weeks 1 day. ALYSSA by prior sonography September 26, 2019. Estimated weight in the 51st percentile. Maternal cervix could not be seen due to low head position. Electronically Signed by Sean Khan MD 09/06/2019 02:24 P
== END ==
LOC: EDBD → M RAD 10:03
PROVIDERS: ATTEND Advanced Practice Midwife
DX: Z36.89 Encounter for other specified antenatal screening (principal); Z3A.35 35 weeks gestation of pregnancy

== ENCOUNTER 2019-09-08 15:06 | Inpatient (IN) | payer OTHER ==
[2019-09-08] VITALS (14 sets, daily range): BP systolic 124–150; BP diastolic 70–95
[~2019-09-08] VITALS: Ht 152.4 cm; Wt 97.4 kg
[2019-09-08] MEDS ORDERED: OXYTOCIN DRIP 30 UNITS in IV 1 EA IV SCH (16:00)
[2019-09-08] MEDS ORDERED: NS 1,000 ML IV SCH (16:15)
[2019-09-08 16:42] LABS: HEMATOCRIT 35.9 % (36.0-47.0); HEMOGLOBIN 11.4 g/dl (12.0-15.5); MEAN CORPUSCULAR HEMOGLOBIN 26.8 pg (27.0-33.0); MEAN CORPUSCULAR HGB CONC 31.8 g/dl (32.0-36.5); MEAN CORPUSCULAR VOLUME 84.3 fl (80.0-96.0); PLATELET COUNT, AUTOMATED 232 10^3/uL (150-450); RED BLOOD COUNT 4.26 10^6/uL (4.00-5.40); WHITE BLOOD COUNT 10.5 10^3/uL (4.0-10.0)
[2019-09-08 17:06] LABS: ALT/SGPT 45 U/L (12-78); BILIRUBIN,TOTAL 0.2 MG/DL (0.2-1.0); CREATININE FOR GFR 0.41 MG/DL (0.55-1.30); LDH LACTATE DEHYDROGENASE 205 U/L (84-246)
[2019-09-08] MEDS ORDERED: NS 500 ML IV ONE (17:15)
[2019-09-08] MEDS ORDERED: NALBUPHINE HCL 10 MG/ML AMP (J2300) IV ONE (19:00)
[2019-09-08] MEDS ORDERED: NALBUPHINE HCL 10 MG/ML AMP (J2300) IM ONE (19:00)
[2019-09-08] MEDS ORDERED: PROMETHAZINE INJ 25 MG/ML VIAL (J2550) IV ONE (19:00)
[2019-09-08 22:43] LABS: CREATININE,RANDOM URINE 68.8 MG/DL; TOTAL PROTEIN,RANDOM URINE 15.5 MG/DL (0.0-12.0)
[2019-09-09] VITALS (47 sets, daily range): BP systolic 115–189; BP diastolic 60–114
[2019-09-09] MEDS ORDERED: FENTANYL 2MCG/ML ROPIVACAINE 0.2% IN 0.9% NACL 100ML IVBAG As Ordered ONE (02:01)
[2019-09-09] MEDS: FENTANYL/ROPIVACAINE/NACL BAG 100 ML EPIDURAL SCH ×3 (02:51→23:30)
[2019-09-09] MEDS ORDERED: NALOXONE INJ 0.4 MG/1 ML VIAL (J2310) IV PRN (03:30)
[2019-09-09] MEDS ORDERED: ePHEDrine SULFATE 25 MG/5 ML(5MG/ML) SYRINGE IV PRN (03:30)
[2019-09-09] MEDS ORDERED: ONDANSETRON 4MG/2ML VIAL (J2405) IV PRN (03:30)
[2019-09-09] MEDS ORDERED: LACTATED RINGER'S 1000 ML IV PRN (03:30)
[2019-09-09] MEDS ORDERED: REFRIGERATOR IV KEYS XX PRN (03:30)
[2019-09-09] MEDS ORDERED: diphenhydrAMINE INJ 50MG/ML VIAL (J1200) IV PRN (03:30)
[2019-09-09] MEDS ORDERED: EPIDURAL/PCA KEYS XX PRN (03:30)
[2019-09-09] MEDS ORDERED: EPIDURAL COMMENT XX SCH (03:30)
[2019-09-09] MEDS ORDERED: RHOGAM 300 MCG (1500 IU) INJ (J2790) IM SCH (11:15)
[2019-09-09] MEDS ORDERED: ACETAMINOPHEN 500 MG TAB PO PRN (11:15)
[2019-09-09] MEDS ORDERED: DOCUSATE SODIUM 100 MG CAP PO PRN (11:15)
[2019-09-09] MEDS ORDERED: ACETAMINOPHEN TAB 650MG DOSE (2X325MG) PO PRN (11:15)
[2019-09-09] MEDS ORDERED: MEASLES,MUMPS,RUBELLA VACCINE INJ (MMR-II) (90707) SC SCH (11:15)
[2019-09-09] MEDS ORDERED: DIBUCAINE 1% OINTMENT 30GM TOP PRN (11:15)
--- NOTE | 2019-09-09 11:22 | DNPDOC ---
[facility] Delivery Note Delivery Note DATE OF DELIVERY: 09 Sep 2019 PREDELIVERY DIAGNOSIS: 37w1d induction of labor for GHTN, A2GDM, Obesity POST DELIVERY DIAGNOSIS: Delivered. PROCEDURE: Spontaneous vaginal delivery DIGITAL FORENSICS EXAMINER: Dr. Analisa Rivera MD ANESTHESIA: epidural ESTIMATED BLOOD LOSS: 200 mL. FINDINGS: 6 pound 9 ounce (2980g) male , Score 8/9 DELIVERY SUMMARY: Domo is a 19yo [id number] s/p uncomplicated at 37w1d after undergoing IOL for GHTN, delivering at 1049 on 09/09/2019. She presented at 4cm, received IV pitocin, had SROM, clear, and received an epidural. She reached C/C/0 and began pushing. 's head delivered OA, restituted MAEGAN. Left anterior shoulder delivered followed by posterior shoulder and corpus. Infant was vigorous, had spontaneous cry, placed on maternal chest, apgars 8/9, nose and mouth suctioned with bulb suction. After approx 1 min, cord was clamped x2 and cut by FOB. Cord blood obtained for MBT. With traction on the cord and uterine massage, placenta delivered spontaneously and intact with 3 vessel centrally inserted cord. More uterine massage performed with fundus then firm at U. Inspection of perineum and vagina revealed a melissa along the left side of the hymenal ring which was repaired with a figure of 8 using 3-0 vicryl with complete hemostasis. All counts correct x2. Mom and infant were doing well when I left the room. MD Nicole Bush Katrina D MD Sep 09, 2019 11:22
[2019-09-09] MEDS ORDERED: OXYTOCIN DRIP 30 UNITS in IV 1 EA IV SCH (11:30)
[2019-09-10] MEDS: IBUPROFEN 800 MG TAB PO PRN (00:09)
[2019-09-10] MEDS: PRENATAL VITAMINS CHEWABLE TABLET PO SCH (08:20)
--- NOTE | 2019-09-10 08:37 | IPNPDOC ---
Progress Note Date of Service: Sep 10, 2019 Day#: 1 Progress Note PPD 1 SUBJECT: Domo is a 19yo [id number] s/p uncomplicated at 37w1d after undergoing IOL for GHTN, delivering at 1049 on 09/09/2019, doing well day # 1. was complicated by A2GDM on insulin and obesity. She has been ambulating, voiding spontaneously without issue and tolerating regular diet. Breast feeding without issue, but baby is in the NICU for low glucose levels. Reports lochia is like a normal period. No f/c/n/v/CP/SOB. No headaches, no vision changes, no abdominal pain. OBJECTIVE: VITAL SIGNS: normotensive to mild range bp's, afebrile. Alert and oriented times three. Abdomen: Fundus firm at U-2. Soft, NTTP. Extremities: no pain with palpation of calves ASSESSMENT: Domo is a 19yo [id number] s/p uncomplicated at 37w1d after undergoing IOL for GHTN, delivering at 1049 on 09/09/2019, doing well day # 1. was complicated by A2GDM on insulin and obesity. Vitals within normal limits, afebrile, hemodynamically stable with no evidence of infection. No sx of pre-eclampsia. PLAN: 1. Routine care 2. Tylenol and Motrin for pain. 3. Encourage visitation of baby in the NICU with breast feeding. Encourage ambulation. 4. Regular diet 5. Possible discharge home tomorrow if meeting all milestones Dr. Analisa Rivera MD VS, I&O, 24H, Fishbone Vital Signs/I&O Vital Signs Date Time Temp Pulse Resp B/P (MAP) Pulse Ox O2 Delivery O2 Flow Rate FiO2 09/09/19 18:00 99.1 89 18 152/65 (94) 09/09/19 12:02 Room Air 09/08/19 16:17 99 I&O- Last 24 Hours up to 6 AM 09/10/19 06:00 Intake Total 2500 ml Output Total 200 ml Balance 2300 ml Laboratory Data 24H LABS Laboratory Tests 2 09/09/19 09:25: Bedside Glucose (Misc Panel) 102 09/09/19 13:48: Bedside Glucose (Misc Panel) 133H Analisa Rivera MD Sep 10, 2019 08:37
[2019-09-10] MEDS: IBUPROFEN 600 MG TAB PO PRN ×2 (09:57→18:39)
[2019-09-10 13:40] VITALS: BP 158/84
[2019-09-10 18:00] VITALS: BP 141/93
[2019-09-11 06:00] VITALS: BP 133/85
--- NOTE | 2019-09-11 07:07 | IPNPDOC ---
Progress Note Date of Service: Sep 11, 2019 Day#: 2 Progress Note SUBJECT: pt is a 19yo [id number] s/p uncomplicated at 37w1d after undergoing IOL for GHTN, delivering at 1049 on 09/09/2019, day # 2. was also complicated by A2GDM on insulin and obesity. She has been ambulating, voiding spontaneously without issue and tolerating regular diet. Breast feeding without issue, but baby is in the NICU for low glucose levels. Reports lochia is like a normal period. No f/c/n/v/CP/SOB. No headaches, no vision changes, no abdominal pain. OBJECTIVE: VITAL SIGNS: Within normal limits, afebrile. Alert and oriented times three. Abdomen: Fundus firm at U-2. Soft, NTTP. LE: no edema/erythema/tenderness A/P ppd #2, doing well. discharge instructions given. d/c today. Le, DO VS, I&O, 24H, Fishbone Vital Signs/I&O Vital Signs Date Time Temp Pulse Resp B/P (MAP) Pulse Ox O2 Delivery O2 Flow Rate FiO2 09/11/19 06:00 98.1 91 18 133/85 (101) 09/10/19 13:40 Room Air 09/08/19 16:17 99 RASHMI MATT DO Sep 11, 2019 07:07
--- NOTE | 2019-09-11 07:12 | OBDS ---
[facility] Obstetrical Discharge Sum. Obstetrical Discharge Summary Date: Sep 11, 2019 : 1 Term: 1 Pre-term: 0 Abortions: 0 Livin VDRL: Non-Reactive Rh: Positive Rubella: Immune Sex: Male Infant Weight: pounds (6), ounces (9), grams (2890) A/P, Post Course List any complications Admission diagnosis: Gravid at 37+1wks GHTN GDMA2 obesity Discharge diagnosis: () ghtn gdma2 obesity Condition at Discharge: stable Discharge Instructions: Home Activity: as tolerated Diet: regular Medications: to be picked up at [facility] Follow-up: 2 days in clinic for BP check, 2 weeks visit Hospital course: Patient admitted for IOL @ 37wks gestation for GHTN. She progressed to have a spontaneous vaginal delivery. Her course has been uncomplicated. Baby admitted to NICU for glucose control. Patient discharged home on day #2. RASHMI MATT DO Sep 11, 2019 07:12
[2019-09-11] MEDS: PRENATAL VITAMINS CHEWABLE TABLET PO SCH (09:56)
[2019-09-11] MEDS: IBUPROFEN 800 MG TAB PO PRN (09:57)
== END 2019-09-11 12:35 | disposition home or self-care (01) | DRG 807 ==
LOC: M LDI 15:06 → M OBS 09-09 13:33
PROVIDERS: ADMIT Advanced Practice Midwife; ATTEND Obstetrics & Gynecology
PROC: 3E033VJ Introduction of Other Hormone into Peripheral Vein, Percutaneous Approach (ICD-10-PCS; 2019-09-08)
PROC: 10E0XZZ Delivery of Products of Conception, External Approach (ICD-10-PCS; principal; 2019-09-09)
DX: O13.4 Gestational [pregnancy-induced] hypertension without significant proteinuria, complicating childbirth (principal); Z37.0 Single live birth; Z3A.37 37 weeks gestation of pregnancy; O24.424 Gestational diabetes mellitus in childbirth, insulin controlled; O99.214 Obesity complicating childbirth; E66.9 Obesity, unspecified; O99.52 Diseases of the respiratory system complicating childbirth; J45.20 Mild intermittent asthma, uncomplicated

== ENCOUNTER 2019-09-27 20:34 | Emergency (ER) | payer OTHER ==
[~2019-09-27] VITALS: Ht 152.4 cm; Wt 88.1 kg
[2019-09-27 22:13] LABS: BASO # 0.1 10^3/uL (0.0-0.2); BASO % 0.6 % (0.0-1.0); EOS # 0.2 10^3/uL (0.0-0.5); EOS % 1.9 % (0.0-3.0); HEMATOCRIT 37.9 % (36.0-47.0); HEMOGLOBIN 12.1 g/dl (12.0-15.5); LYMPH # 2.9 10^3/uL (1.5-5.0); LYMPH % 32.3 % (24.0-44.0); MEAN CORPUSCULAR HEMOGLOBIN 26.5 pg (27.0-33.0); MEAN CORPUSCULAR HGB CONC 31.9 g/dl (32.0-36.5); MEAN CORPUSCULAR VOLUME 82.9 fl (80.0-96.0); MONO # 0.7 10^3/uL (0.0-0.8); MONO % 7.9 % (0.0-5.0); NEUTROPHILS % 57.1 % (36.0-66.0); PLATELET COUNT, AUTOMATED 389 10^3/uL (150-450); RED BLOOD COUNT 4.57 10^6/uL (4.00-5.40); WHITE BLOOD COUNT 8.8 10^3/uL (4.0-10.0)
--- NOTE | 2019-09-27 22:25 | REPVR ---
PROCEDURE INFORMATION: Exam: US Abdomen Limited, Right Upper Quadrant Exam date and time: 09/27/2019 9:54 PM Age: 19 years old Clinical indication: Abdominal pain; Epigastric; Additional info: Upper, epigastric pain R/O gallstones TECHNIQUE: Imaging protocol: Real-time ultrasound of the abdomen with image documentation. Examination was focused on the right upper quadrant. COMPARISON: No relevant prior studies available. FINDINGS: Liver: Normal. No masses. Gallbladder: The gallbladder is contracted. This is most likely related to incomplete fasting. Clinical correlation to exclude gallbladder pathology suggested. Common bile duct: The common bile duct measures 2.8 mm. No mass or choledocholithiasis. Pancreas: Visualized pancreas is unremarkable. Right kidney: Right kidney measures 10.1 x 4.5 x 4.4 cm. IMPRESSION: The gallbladder is contracted. This is most likely related to incomplete fasting. Clinical correlation to exclude gallbladder pathology suggested. Electronically signed by: Rene Jasmine On 09/27/2019 22:24:57 PM
[2019-09-27 22:47] LABS: ALBUMIN 2.8 GM/DL (3.2-5.2); ALT/SGPT 68 U/L (12-78); BILIRUBIN,DIRECT < 0.1 MG/DL (0.0-0.2); BILIRUBIN,TOTAL 0.2 MG/DL (0.2-1.0); BLOOD UREA NITROGEN 10 MG/DL (7-18); CALCIUM LEVEL 6.9 MG/DL (8.5-10.1); CARBON DIOXIDE LEVEL 18 MEQ/L (21-32); CHLORIDE LEVEL 117 MEQ/L (98-107); CREATININE FOR GFR 0.44 MG/DL (0.55-1.30); GLUCOSE, FASTING 74 MG/DL (70-100); LIPASE 110 U/L (73-393); POTASSIUM SERUM 3.4 MEQ/L (3.5-5.1); SODIUM LEVEL 145 MEQ/L (136-145); TOTAL PROTEIN 5.5 GM/DL (6.4-8.2)
[2019-09-27] MEDS ORDERED: ISOVUE-370 76% 100ML VIAL (Q9967) As Ordered ONE (22:56)
[2019-09-27] MEDS: POTASSIUM CHLORIDE 10 MEQ SR TABLET PO ONE (23:08)
--- NOTE | 2019-09-28 00:05 | REPVR ---
PROCEDURE INFORMATION: Exam: CT Abdomen And Pelvis Without Contrast Exam date and time: 09/27/2019 11:08 PM Age: 19 years old Clinical indication: Abdominal pain; Epigastric; Additional info: Epigastric abd pain TECHNIQUE: Imaging protocol: Computed tomography of the abdomen and pelvis without contrast. Radiation optimization: All CT scans at this facility use at least one of these dose optimization techniques: automated exposure control; mA and/or kV adjustment per patient size (includes targeted exams where dose is matched to clinical indication); or iterative reconstruction. COMPARISON: US PELVIC NON-OB COMPLETE 08/17/2018 2:09 PM FINDINGS: Liver: The spleen measures 10.3 cm and is borderline relative to the liver. Gallbladder and bile ducts: Contracted gallbladder with gallstones. Pancreas: Normal. No ductal dilation. Spleen: Normal. No splenomegaly. Adrenals: Normal. No mass. Kidneys and ureters: Normal. No hydronephrosis. Stomach and bowel: Unremarkable. No obstruction. No mucosal thickening. Appendix: A normal appendix is seen. Intraperitoneal space: Unremarkable. No free air. No significant fluid collection. Vasculature: Unremarkable. No abdominal aortic aneurysm. Lymph nodes: Borderline right lower quadrant mesenteric nodes which are not unusual for age. Bladder: Unremarkable as visualized. Reproductive: The uterus measures 6.2 cm in its AP dimension which is probably upper normal for age. Bones/joints: Bilateral spondylolysis of L5 without significant listhesis. Soft tissues: Unremarkable. IMPRESSION: 1. Borderline splenomegaly. 2. Cholelithiasis with contracted gallbladder. 3. Borderline right lower quadrant mesenteric nodes which are not unusual for age. This 4. Bilateral spondylolysis of L5. Electronically signed by: Dougie Akers On 09/28/2019 00:04:53 AM
[2019-09-28 00:50] VITALS: BP 118/72
== END 2019-09-28 00:57 | disposition home or self-care (01) ==
LOC: M ED 20:34
DX: K80.51 Calculus of bile duct without cholangitis or cholecystitis with obstruction (principal); J45.909 Unspecified asthma, uncomplicated; Z87.19 Personal history of other diseases of the digestive system; Z88.0 Allergy status to penicillin; Z91.040 Latex allergy status; Z88.8 Allergy status to other drugs, medicaments and biological substances
CPT/HCPCS: 74176; 76705; 80048; 80076; 83690; 85025; 93041; 99285; Q9967

== ENCOUNTER 2019-10-10 16:42 | Emergency (ER) | payer OTHER ==
[~2019-10-10] VITALS: Ht 152.4 cm; Wt 87.4 kg
[~2019-10-10 16:42] MED LIST changes: +ONDA-83 PO; -ONDA4TAB5 PO
[2019-10-10 18:03] LABS: BASO # 0.1 10^3/uL (0.0-0.2); BASO % 0.9 % (0.0-1.0); EOS # 0.3 10^3/uL (0.0-0.5); EOS % 4.1 % (0.0-3.0); HEMATOCRIT 42.2 % (36.0-47.0); HEMOGLOBIN 12.6 g/dl (12.0-15.5); LYMPH # 2.1 10^3/uL (1.5-5.0); LYMPH % 32.6 % (24.0-44.0); MEAN CORPUSCULAR HEMOGLOBIN 25.4 pg (27.0-33.0); MEAN CORPUSCULAR HGB CONC 29.9 g/dl (32.0-36.5); MEAN CORPUSCULAR VOLUME 85.1 fl (80.0-96.0); MONO # 0.7 10^3/uL (0.0-0.8); MONO % 10.2 % (0.0-5.0); NEUTROPHILS # 3.3 10^3/uL (1.5-8.5); NEUTROPHILS % 51.9 % (36.0-66.0); PLATELET COUNT, AUTOMATED 315 10^3/uL (150-450); RED BLOOD COUNT 4.96 10^6/uL (4.00-5.40); WHITE BLOOD COUNT 6.4 10^3/uL (4.0-10.0)
[2019-10-10 18:32] LABS: ALBUMIN 3.5 GM/DL (3.2-5.2); ALT/SGPT 56 U/L (12-78); BILIRUBIN,DIRECT < 0.1 MG/DL (0.0-0.2); BILIRUBIN,TOTAL 0.2 MG/DL (0.2-1.0); BLOOD UREA NITROGEN 8 MG/DL (7-18); CALCIUM LEVEL 8.6 MG/DL (8.5-10.1); CARBON DIOXIDE LEVEL 27 MEQ/L (21-32); CHLORIDE LEVEL 108 MEQ/L (98-107); CREATININE FOR GFR 0.66 MG/DL (0.55-1.30); GLUCOSE, FASTING 88 MG/DL (70-100); LIPASE 145 U/L (73-393); SODIUM LEVEL 140 MEQ/L (136-145); TOTAL PROTEIN 7.1 GM/DL (6.4-8.2)
[2019-10-10] MEDS ORDERED: NS 1,000 ML IV ONE (18:45)
[2019-10-10 20:59] VITALS: BP 126/53
== END 2019-10-10 21:49 | disposition home or self-care (01) ==
LOC: M ED 16:42
DX: K80.50 Calculus of bile duct without cholangitis or cholecystitis without obstruction (principal); Z88.0 Allergy status to penicillin; Z88.8 Allergy status to other drugs, medicaments and biological substances; Z91.040 Latex allergy status

== ENCOUNTER 2019-11-02 07:23 | Day surgery (SDC) | payer OTHER ==
[~2019-11-02] VITALS: Ht 154.9 cm; Wt 90.2 kg
[~2019-11-02 07:23] MED LIST changes: +LR 1,000 ML IV ONE; +LevoFLOXacin IV 500 MG in IV 1 EA IV ONE; +PROAAER10 INH
[2019-11-02] MEDS ORDERED: KETOROLAC 30 MG/ML VIAL (J1885) IV ONE (09:15)
[2019-11-02] MEDS ORDERED: dexameTHASONE 4 MG/ML 1ML VIAL (J1100) As Ordered ONE (09:19)
[2019-11-02] MEDS ORDERED: LIDOCAINE 2% INJ 100 MG/5 ML SDV (FOR ANES.) As Ordered ONE (09:19)
[2019-11-02] MEDS ORDERED: propofoL 200 MG/20 ML VIAL As Ordered ONE (09:19)
[2019-11-02] MEDS ORDERED: ONDANSETRON 4MG/2ML VIAL (J2405) As Ordered ONE (09:19)
[2019-11-02] MEDS ORDERED: KETOROLAC 60 MG/2 ML VIAL (J1885) As Ordered ONE (09:19)
[2019-11-02] MEDS ORDERED: ROCURONIUM BROMIDE 50 MG/5 ML VIAL As Ordered ONE (09:19)
[2019-11-02] MEDS ORDERED: fentaNYL 250 MCG/5 ML INJECTION (J3010) As Ordered ONE (09:20)
[2019-11-02] MEDS ORDERED: MIDAZOLAM INJ 2 MG/2 ML VIAL (J2250) As Ordered ONE (09:20)
[2019-11-02] MEDS ORDERED: BUPIVACAINE HCL 0.25% 30 ML VIAL As Ordered ONE (09:30)
[2019-11-02] MEDS ORDERED: LIDOCAINE 1% SDV INJ 30 ML VIAL As Ordered ONE (09:31)
[2019-11-02] MEDS ORDERED: CLINDAMYCIN 600 MG in IV 1 EA IV ONE (10:00)
[2019-11-02] MEDS ORDERED: LACRILUBE (AKWA TEARS) OPHTH OINT 3.5 GM As Ordered ONE (10:48)
[2019-11-02] MEDS ORDERED: ACETAMINOPHEN 1000MG 100ML IV BTL (OFIRMEV) (J0131 PER 10MG) As Ordered ONE (11:08)
[2019-11-02] MEDS ORDERED: SUGAMMADEX SODIUM 500 MG/5 ML VIAL (BRIDION) As Ordered ONE (11:26)
[2019-11-02] MEDS ORDERED: PERCOCET 5MG/325MG TAB PO PRN (12:15)
[2019-11-02] MEDS ORDERED: fentaNYL 100 MCG/2 ML INJECTION (J3010) IV PRN (12:15)
[2019-11-02] MEDS ORDERED: NORCO, ANEXSIA 5/325MG TABLET (HYDROcodone/ACETAMINOPHEN) PO PRN ×2 (12:15)
[2019-11-02] MEDS ORDERED: ONDANSETRON 4MG/2ML VIAL (J2405) IV PRN ×2 (12:15)
[2019-11-02] MEDS ORDERED: METOCLOPRAMIDE INJ 10MG/2ML VIAL (J2765) IV PRN (12:15)
[2019-11-02] MEDS ORDERED: KETOROLAC 30 MG/ML VIAL (J1885) IV PRN (12:15)
[2019-11-02] MEDS ORDERED: LR 1,000 ML IV SCH (12:15)
--- NOTE | 2019-11-02 13:01 | ROOPDOC ---
[facility] Report Of Operation Report of Operation DATE OF PROCEDURE: 11/02/19 PREPROCEDURE DIAGNOSES: Cholelithiasis, biliary colic attacks. POSTPROCEDURE DIAGNOSES: Cholelithiasis, mild may be acute or chronic cholecystitis. PROCEDURE: Laparoscopic cholecystectomy. SURGEON: Bryon Lorenzo MD UTILITY BILL COLLECTION CLERK: Dajuan Galvan (MS III) ANESTHESIA: Gen. anesthesia. ESTIMATED BLOOD LOSS: Approximately 10 mL. COMPLICATIONS: 9. REMARKS: Patient is a 19-year-old female who during her was having a lot of symptoms of upper abdominal pain initially anemia related to her gallstones. She has completed her and even has been having biliary colic attacks and she is now brought in today for laparoscopic cholecystectomy. PROCEDURE NOTE: Moderately distended but relatively soft thin-walled gallbladder with some signs of mild gallbladder wall edema during dissection. Otherwise no big stones probably small choleliths floating inside of the gallbladder. Gallbladder was removed intact. Critical view of safety achieved prior to cutting the cystic artery and cystic duct which was photo-documented.. DESCRIPTION OF PROCEDURE: Patient was given a dose Clindamycin 600 mg IV preoperatively for prophylaxis. She was brought to the operating room, laid supine on the table, compression boots placed for DVT prophylaxis. General endotracheal anesthesia st arted. Her abdomen then prepped and draped in usual sterile fashion. Surgical timeout was performed prior to starting surgery. Entry into the abdomen done through an incision above the umbilicus. A Veress needle was inserted with a controlled fashion. CO2 insufflation started to pressure 15 mmHg. Using the same incision a 5 mm Visiport was placed under direct vision laparoscope. The area underneath the insertion site was inspected and no injury found. She was then placed in steep reverse Trendelenburg. Her right side was tilted up to further expose the gallbladder. Under direct vision a 11 mm epigastric port and Two 5 mm working ports placed along the right subcostal line. Operative findings: Her liver is visualized, smooth in contour, no lesions, nodularities noted. Her gallbladder is moderately distended but soft. Minimally thick-walled. During dissection a note some mild gallbladder wall edema at the posterior wall. No free fluid or ascites. Most of her intestines are covered with thick omentum. The fundus of the gallbladder was grasped and the gallbladder was elevated superiorly exposing the neck of the gallbladder. The infundibulum identified and retracted laterally. The peritoneum overlying the area was opened up and dissected free both anteriorly and posteriorly to help with retraction of the gallbladder. The hepatocystic triangle was approached and dissected using a [place] and instrument. The cystic duct was identified coming off from the neck of thr gallbladder; this was circumferentially dissected. The cystic artery was identified in its usual position medially behind a small lymph node of Calot. This was similarly circumferentially dissected off surrounding adipose tissue. We continued posterior dissection further taking down the fibroadipose tissue at the cystic plate clearing this off from the neck of the gallbladder proceeding proximally until a critical view of safety was achieved whereby only the previously identified duct and artery coursing through the neck the gallbladder. (photodocumented) At this point the cystic artery was clipped 4 times and divided. After again checking her anatomy and verifying that the previously identified cystic duct, this was also clipped 4 times and divided. The rest of the gallbladder was then dissected free of the gallbladder bed using Bovie cautery. The gallbladder was then placed in an Endo Catch bag and retrieved outside through the epigastric port site. After re-insufflation and inspected the clips and noted this to be in place. The known millimeter fascial defect epigastric area was closed with a Donald Butler device using 0 Vicryl. The abdomen was deflated all ports were removed. Rest of the skin incisions closed with 4-0 Monocryl in subcuticular fashion. Steri-Strips and gauze dressings were placed, the wound. Patient was informed they awakened, extubated and brought to recovery room stable . BRYON BENNETT MD Nov 02, 2019 13:01
[2019-11-02 15:00] VITALS: BP 137/66
== END 2019-11-02 15:06 | disposition home or self-care (01) ==
LOC: M SDC 07:23
PROVIDERS: ATTEND Surgery
DX: K80.10 Calculus of gallbladder with chronic cholecystitis without obstruction (principal); K21.9 Gastro-esophageal reflux disease without esophagitis; R06.02 Shortness of breath; F41.9 Anxiety disorder, unspecified; F31.9 Bipolar disorder, unspecified; J45.909 Unspecified asthma, uncomplicated; F43.10 Post-traumatic stress disorder, unspecified; F17.210 Nicotine dependence, cigarettes, uncomplicated; Z88.0 Allergy status to penicillin; Z88.8 Allergy status to other drugs, medicaments and biological substances; Z91.040 Latex allergy status
CPT/HCPCS: 47562; 81025; 88304; J0131; J1100; J1885; J2250; J2405; J3010

== ENCOUNTER 2020-03-15 16:57 | Observation (INO) | payer OTHER ==
[~2020-03-15] VITALS: Ht 152.4 cm; Wt 91.7 kg
[~2020-03-15 16:57] MED LIST changes: -LR 1,000 ML IV ONE; -LevoFLOXacin IV 500 MG in IV 1 EA IV ONE
[2020-03-15] MEDS ORDERED: PREN29TA4 PO (17:05)
[2020-03-15] MEDS ORDERED: NS 1,000 ML IV ONE (17:30)
[2020-03-15 17:54] LABS: AMORPHOUS SEDIMENT SMALL (NEGATIVE); APPEARANCE, URINE HAZY (CLEAR); BACTERIA, URINE AUTO NEGATIVE (NEGATIVE); BILIRUBIN, URINE AUTO NEGATIVE (NEGATIVE); BLOOD, URINE BLOOD NEGATIVE (NEGATIVE); CALCIUM OXALATE CRYSTALS SMALL; COLOR, URINE YELLOW (YELLOW); GLUCOSE, URINE (UA) AUTO NEGATIVE (NEGATIVE); KETONE, URINE AUTO NEGATIVE (NEGATIVE); LEUKOCYTE ESTERASE, URINE AUTO NEGATIVE (NEGATIVE); MUCUS, URINE SMALL (NEGATIVE); NITRITE, URINE AUTO NEGATIVE (NEGATIVE); PROTEIN, URINE AUTO NEGATIVE (NEGATIVE); RBC, URINE AUTO 3 /HPF (0-3); SPECIFIC GRAVITY URINE AUTO 1.018 (1.002-1.035); SQUAMOUS EPITHELIAL CELL UR AU 1 /HPF (0-6); WBC, URINE AUTO 1 /HPF (0-3)
[2020-03-15 17:55] LABS: BASO % 0.2 % (0.0-1.0); EOS # 0.1 10^3/uL (0.0-0.5); EOS % 0.4 % (0.0-3.0); HEMATOCRIT 36.8 % (36.0-47.0); HEMOGLOBIN 12.4 g/dl (12.0-15.5); LYMPH # 2.6 10^3/uL (1.5-5.0); LYMPH % 19.2 % (24.0-44.0); MEAN CORPUSCULAR HEMOGLOBIN 27.4 pg (27.0-33.0); MEAN CORPUSCULAR HGB CONC 33.7 g/dl (32.0-36.5); MEAN CORPUSCULAR VOLUME 81.4 fl (80.0-96.0); MONO # 0.8 10^3/uL (0.0-0.8); MONO % 6.2 % (0.0-5.0); NEUTROPHILS # 9.9 10^3/uL (1.5-8.5); NEUTROPHILS % 73.4 % (36.0-66.0); PLATELET COUNT, AUTOMATED 326 10^3/uL (150-450); RED BLOOD COUNT 4.52 10^6/uL (4.00-5.40); WHITE BLOOD COUNT 13.5 10^3/uL (4.0-10.0)
[2020-03-15 18:02] LABS: AMPHETAMINES LEVEL URINE NEGATIVE (NEGATIVE); BARBITURATES URINE NEGATIVE (NEGATIVE); BENZODIAZEPINES URINE NEGATIVE (NEGATIVE); CANNABINOIDS URINE NEGATIVE (NEGATIVE); COCAINE METABOLITE URINE NEGATIVE (NEGATIVE); METHADONE URINE NEGATIVE (NEGATIVE); OPIATES URINE NEGATIVE (NEGATIVE); PHENCYCLIDINE URINE NEGATIVE (NEGATIVE)
[2020-03-15 18:15] LABS: ALT/SGPT 14 U/L (12-78); BILIRUBIN,DIRECT < 0.1 MG/DL (0.0-0.2); BILIRUBIN,TOTAL 0.2 MG/DL (0.2-1.0); BLOOD UREA NITROGEN 5 MG/DL (7-18); CALCIUM LEVEL 9.1 MG/DL (8.5-10.1); CARBON DIOXIDE LEVEL 23 MEQ/L (21-32); CHLORIDE LEVEL 107 MEQ/L (98-107); CK-MB VALUE MASS < 1.0 NG/ML (<3.6); CPK CREATINE PHOSPHOKINASE 24 U/L (26-192); CREATININE FOR GFR 0.44 MG/DL (0.55-1.30); FREE T4 1.05 NG/DL (0.78-1.33); GLUCOSE, FASTING 89 MG/DL (70-100); MB/CK RELATIVE INDEX 4.17 (< OR =4); POTASSIUM SERUM 3.5 MEQ/L (3.5-5.1); SODIUM LEVEL 137 MEQ/L (136-145); THYROID STIMULATING HORMONE 0.364 uIU/ML (0.463-3.98); TOTAL PROTEIN 6.6 GM/DL (6.4-8.2); TROPONIN I < 0.02 NG/ML (< 0.10)
--- NOTE | 2020-03-15 19:23 | HPEPDOC ---
General Date of Admission 03/15/2020 Date of Service: Mar 15, 2020 Chief Complaint The patient is a 19-year-old female who presented to ER with palpitations History of Present Illness Patient is a 19 year old female who is 16 weeks with a history of Asthma and Fibromyalgia, who presented to the ER with palpitations. Patient reported that she was at her PCPs office at [facility] yesterday. Yesterday, her heart was noted to be 125, she was asymptomatic. Today, patient awoke and felt hot. She walked to the kitchen and felt that she may be over healing determined. Aceon. Patient reported that at that time, she experiencing blurred vision, can focus on TV or reading and reported a headache. Patient then lay down, put her feet up and noted that she felt better. Later on she was changing her babys diaper and noted that she again experienced lightheadedness, headache and blurred vision.. She also reported palpitations at this time. She noted that when she checked her blood pressure it was 126/75 with heart rate of 130s. Patient has reported a history of gestational hypertension and diabetes on her prior at 36 weeks. She was not given any medications at that time and instead had her vaginal delivery. Patient did report that she was on sliding scale insulin as well as long-acting insulin during that . Currently, patient reports a mild headache reported at 5/10. Patient reports that she has associated photophobia and purchase sunglasses for use today. Patient reports that usually every morning she experiences nausea and vomiting. This morning, she did report a small amount of vomitus, which is not unusual from her baseline during the . Patient reports that she does not experiences any chest pain, shortness of breath, cough, fevers, chills, abdominal pain, constipation, diarrhea, or urinary discomfort.. Currently, she is not experiencing palpitations. Patient reports that her appetite is unchanged, but does report some weight loss. Home Medications Scheduled Prenat 115/Iron Fum/Folic/Dss ( 19 Tablet) 1 Each Tablet, 1 TAB PO DAILY, (Reported) Allergies Coded Allergies: Penicillins (Verified Allergy, Intermediate, hives, 11/02/19) latex (Verified Allergy, Intermediate, itching, 11/02/19) pt reports itching with certain latex products polyethylene glycol 3350 (Verified Adverse Reaction, Mild, vomit, 11/02/19) Past Medical History Medical History History of gestational hypertension and diabetes Asthma Fibromyalgia Surgical History Cholecystectomy. 10/2018 Family History - Mother: History of HTN - Father: secondary to [place] Social History - Denies the use of alcohol, tobacco or illicit drugs - Denies recent travel or sick contacts - Lives with , son and [id number] - Occupation; [employer] Review of Systems Other systems 10 point review of systems complete, all negative otherwise stated in HPI Vital Signs - Vitals: BP 130/78, HR 104, RR 18, Sat 99%RA, Temp 98.6F - General: Lying in bed, No acute distress, Speaking in full sentences, AAOx3 - HEENT: NC, AT, PERRLA - CVS: Tachycardic, +S1S2 - Lungs: Fair air entry bilaterally, No wheezing / rales / rhonchi - Abdomen: Soft, Non-distended, Non-tender - Extremities: No lower extremity edema, No calf tenderness - Neuro: No focal motor or sensory deficit - Skin: No visible rashes Laboratory Data Labs 24H Laboratory Tests 2 03/15/20 17:25: Immature Granulocyte % (Auto) 0.6, Neutrophils (%) (Auto) 73.4H, Lymphocytes (%) (Auto) 19.2L, Monocytes (%) (Auto) 6.2H, Eosinophils (%) (Auto) 0.4, Basophils (%) (Auto) 0.2, Neutrophils # (Auto) 9.9H, Lymphocytes # (Auto) 2.6, Monocytes # (Auto) 0.8, Eosinophils # (Auto) 0.1, Basophils # (Auto) 0.0, Nucleated Red Blood Cells % (auto) 0.0, Urine Color YELLOW, Urine Appearance HAZY, Urine pH 6.0, Urine Specific [place] 1.018, Urine Protein NEGATIVE, Urine Glucose (Auto)( UA) NEGATIVE, Urine Ketones (Auto) NEGATIVE, Urine Blood NEGATIVE, Urine Nitrite NEGATIVE, Urine Bilirubin NEGATIVE, Urine Urobilinogen 2.0H, Urine Leukocyte Esterase (Auto) NEGATIVE, Urine WBC (Auto) 1, Urine RBC (Auto) 3, Urine Hyaline Casts (Auto) 0, Urine Bacteria (Auto) NEGATIVE, Urine Squamous Epithelial Cells 1, Urine Calcium Oxalate Cryst (Auto) SMALL, Urine Amorphous Sediment (Auto) SMALLH, Urine Mucus (Auto) SMALL, Urine Sperm (Auto) , Anion Gap 7L, Calcium Level 9.1, Total Bilirubin 0.2, Direct Bilirubin < 0.1, Aspartate Amino Transf (AST/SGOT) 11, Alanine Aminotransferase (ALT/SGPT) 14, Alkaline Phosphatase 83, Total Creatine Kinase 24L, Creatine Kinase MB < 1.0, Creatine Kinase MB Relative Index 4.17H, Troponin I < 0.02, Total Protein 6.6, Albumin 3.0L, Albumin/Globulin Ratio 0.8L, Thyroid Stimulating Hormone (TSH) 0.364L, Free Thyroxine 1.05, Urine Opiates Screen NEGATIVE, Urine Methadone Screen NEGATIVE, Urine Barbiturates Screen NEGATIVE, Urine Phencyclidine Screen NEGATIVE, Urine Amphetamines Screen NEGATIVE, Urine Benzodiazepines Screen NEGATIVE, Urine Cocaine Metabolite Screen NEGATIVE, Urine Cannabinoids Screen NEGATIVE CBC/BMP Laboratory Tests 03/15/20 17:25 Microbiology Microbiology 03/15/20 Urine Culture, Received Pending Plan / VTE VTE Prophylaxis Ordered?: Yes Plan Plan Palpitations / Near-syncope - possibly 2/2 physiologic etiology, possibly 2/2 dehydration (improved with IV fluids), less likely 2/2 cardiogenic, less likely 2/2 pulmonary etiology - Presented to the ER with complains of palpitations, lightheadedness, blurred vision, dizziness - Patients blood pressure is mildly elevated from baseline; patient reports that as an outpatient. Her systolics are usually in the 120s - Currently patients systolic BP is in the 150s - Upon arrival, patients heart rate was noted to be 130s, but has improved with IV fluid hydration to the low 100s - Troponin 1 set is negative; will continue to trend - UDS negative - EKG noted to severe short AL interval, however, no delta waves noted - less likely 2/2 WPW - Will check echocardiogram / continue telemetry monitoring - Will check duplex US of bilateral LE - At this time, will hold off on starting hypertensive medications (specifically beta blockers) and will continue with workup delineated above Leukocytosis - possibly 2/2 reactive etiology - Patient denies any chest pain, cough, or recent fever, chills - Urine analysis is consistent with infection - Will hold off on antibiotics 16 weeks gestation - heart done in the ER and was appropriate - Cased discussed with Dr. Manzanares; no addiitionla workup required - Continue with heart sounds q24 hours if she remains inpatient longer - Follow up with OB as per Dr. Manzanares History of gestational hypertension and diabetes - Will check A1c Asthma - No evidence of exacerbation - Patient reports that she uses an inhaler as needed but has not required one in a very long time Fibromyalgia - Patient with that she has stopped taking medications since her DVT prophylaxis - Will start MARIA DOLORES Cole MD Mar 15, 2020 19:23
[2020-03-15] MEDS: NS 1,000 ML IV SCH (19:32)
--- NOTE | 2020-03-15 20:21 | REPVR ---
PROCEDURE INFORMATION: Exam: US Duplex Lower Extremity Veins, Bilateral Exam date and time: 03/15/2020 8:06 PM Age: 19 years old Clinical indication: Edema, localized; Lower extremity, bilateral; Additional info: Evaluate for dvt TECHNIQUE: Imaging protocol: Real-time duplex ultrasound of the extremities with 2-D patterson scale, color Doppler flow and spectral waveform analysis with image documentation. Complete exam focused on the bilateral lower extremity veins. COMPARISON: No relevant prior studies available. FINDINGS: Right deep veins: Unremarkable. The common femoral, femoral, proximal profunda femoral and popliteal veins are patent without thrombus. Normal Doppler waveforms. Normal compressibility and/or augmentation response. Right superficial veins: Saphenofemoral junction is patent without thrombus. Left deep veins: Unremarkable. The common femoral, femoral, proximal profunda femoral and popliteal veins are patent without thrombus. Normal Doppler waveforms. Normal compressibility and/or augmentation response. Left superficial veins: Saphenofemoral junction is patent without thrombus. Soft tissues: Unremarkable. IMPRESSION: No evidence of deep vein thrombosis. Electronically signed by: Iris Cartagena On 03/15/2020 20:20:59 PM
[2020-03-15 20:30] VITALS: BP 141/81
[2020-03-15] MEDS ORDERED: ENOXAPARIN 40MG/0.4ML SYRINGE (J1650 PER 10MG) SC SCH (21:00)
[2020-03-16] VITALS: BP 142/92
[2020-03-16 00:34] LABS: CK-MB VALUE MASS < 1.0 NG/ML (<3.6); CPK CREATINE PHOSPHOKINASE 16 U/L (26-192); MB/CK RELATIVE INDEX 6.25 (< OR =4); TROPONIN I < 0.02 NG/ML (< 0.10)
[2020-03-16 04:00] VITALS: BP 141/63
[2020-03-16 05:43] LABS: BASO % 0.4 % (0.0-1.0); EOS # 0.1 10^3/uL (0.0-0.5); EOS % 0.6 % (0.0-3.0); HEMATOCRIT 33.9 % (36.0-47.0); HEMOGLOBIN 11.3 g/dl (12.0-15.5); LYMPH # 2.8 10^3/uL (1.5-5.0); LYMPH % 26.1 % (24.0-44.0); MEAN CORPUSCULAR HEMOGLOBIN 27.7 pg (27.0-33.0); MEAN CORPUSCULAR HGB CONC 33.3 g/dl (32.0-36.5); MEAN CORPUSCULAR VOLUME 83.1 fl (80.0-96.0); MONO # 0.7 10^3/uL (0.0-0.8); NEUTROPHILS # 7.2 10^3/uL (1.5-8.5); NEUTROPHILS % 66.3 % (36.0-66.0); PLATELET COUNT, AUTOMATED 262 10^3/uL (150-450); RED BLOOD COUNT 4.08 10^6/uL (4.00-5.40); WHITE BLOOD COUNT 10.8 10^3/uL (4.0-10.0)
[2020-03-16 06:18] LABS: BLOOD UREA NITROGEN 2 MG/DL (7-18); CALCIUM LEVEL 8.6 MG/DL (8.5-10.1); CARBON DIOXIDE LEVEL 20 MEQ/L (21-32); CHLORIDE LEVEL 111 MEQ/L (98-107); CK-MB VALUE MASS < 1.0 NG/ML (<3.6); CPK CREATINE PHOSPHOKINASE 32 U/L (26-192); CREATININE FOR GFR 0.37 MG/DL (0.55-1.30); GLUCOSE, FASTING 84 MG/DL (70-100); MAGNESIUM LEVEL 1.7 MG/DL (1.8-2.4); MB/CK RELATIVE INDEX 3.12 (< OR =4); POTASSIUM SERUM 3.7 MEQ/L (3.5-5.1); SODIUM LEVEL 141 MEQ/L (136-145); TROPONIN I < 0.02 NG/ML (< 0.10)
[2020-03-16 08:00] VITALS: BP 134/63
[2020-03-16] MEDS: NS 1,000 ML IV SCH (08:00)
[2020-03-16] MEDS ORDERED: ACETAMINOPHEN TAB 650MG DOSE (2X325MG) PO ONE (08:30)
[2020-03-16] MEDS ORDERED: PRENATAL VITAMINS CHEWABLE TABLET PO SCH (09:00)
--- NOTE | 2020-03-16 12:11 | DS.PDOC ---
Discharge Summary General Date of Admission Mar 15, 2020 at 19:02 Date of Discharge 03/16/20 Discharge Summary PROCEDURES PERFORMED DURING STAY: None. ADMITTING DIAGNOSES: 1. Near-syncope tachycardia. DISCHARGE DIAGNOSES: 1. Near-syncope tachycardia. COMPLICATIONS/CHIEF COMPLAINT: Near Syncope,Tachycardia. HISTORY OF PRESENT ILLNESS: Patient is a 19 year old female who is 16 weeks with a history of Asthma and Fibromyalgia, who presented to the ER with palpitations. Patient reported that she was at her PCPs office at [facility] yesterday. Yesterday, her heart was noted to be 125, she was asymptomatic. Today, patient awoke and felt hot. She walked to the kitchen and felt that she may be over healing determined. Aceon. Patient reported that at that time, she experiencing blurred vision, can focus on TV or reading and reported a headache. Patient then lay down, put her feet up and noted that she felt better. Later on she was changing her babys diaper and noted that she again experienced lightheadedness, headache and blurred vision.. She also reported palpitations at this time. She noted that when she checked her blood pressure it was 126/75 with heart rate of 130s. Patient has reported a history of gestational hypertension and diabetes on her prior at 36 weeks. She was not given any medications at that time and instead had her vaginal delivery. Patient did report that she was on sliding scale insulin as well as long-acting insulin during that . Currently, patient reports a mild headache reported at 5/10. Patient reports that she has associated photophobia and purchase sunglasses for use today. Patient reports that usually every morning she experiences nausea and vomiting. This morning, she did report a small amount of vomitus, which is not unusual from her baseline during the . Patient reports that she does not experiences any chest pain, shortness of breath, cough, fevers, chills, abdominal pain, constipation, diarrhea, or u rinary discomfort.. Currently, she is not experiencing palpitations. Patient reports that her appetite is unchanged, but does report some weight loss.. HOSPITAL COURSE: Patient was admitted with questionable near syncope and tachycardia, patient remained stable after IV hydration in the emergency room but was recommended by OB to monitor her overnight. Patient's telemetry was checked. There were no arrhythmias and no rhythm abnormalities. Patient is clinically stable vital signs are stable. Repeat heartbeat is within normal limits and she will be discharged home and can follow up with her OB physician, Dr. Olivia as an outpatient as per schedule appointment. Patient has been recommended to increase oral intake of liquids as much as tolerated and avoid exposure to sun and heat. DISCHARGE MEDICATIONS: Please see below. ALLERGIES: Please see below. PHYSICAL EXAMINATION ON DISCHARGE: VITAL SIGNS: Please see below. GENERAL: Within normal limits HEENT: PERRLA. Extraocular muscles intact NECK: Supple CARDIOVASCULAR EXAMINATION: S1, S2, regular RESPIRATORY EXAMINATION: Clear to A&P ABDOMINAL EXAMINATION: Benign EXTREMITIES: No clubbing, cyanosis, edema SKIN: Normal NEUROLOGICAL EXAMINATION: Focal motor sensory deficit PSYCHIATRIC EXAMINATION: Normal LABORATORY DATA: Please see below. IMAGING: Bilateral venous Dopplers:IMPRESSION: No evidence of deep vein thrombosis. PROGNOSIS: Good ACTIVITY: As tolerated. DIET: As tolerated DISCHARGE PLAN: Discharge home. Follow with Dr. Manzanares as outpatient as per schedule appointment DISPOSITION: Home, Self-Care. DISCHARGE INSTRUCTIONS: 1. As above. ITEMS TO FOLLOWUP ON ON OUTPATIENT: 1. As above. DISCHARGE CONDITION: Stable. TIME SPENT ON DISCHARGE: 22 minutes. Vital Signs/I&Os Vital Signs Date Time Temp Pulse Resp B/P (MAP) Pulse Ox O2 Delivery O2 Flow Rate FiO2 03/16/20 08:00 97.0 78 18 134/63 (86) 100 Room Air I&O- Last 24 Hours up to 6 AM 03/16/20 05:59 Intake Total 1085 ml Balance 1085 ml Laboratory Data Labs 24H Laboratory Tests 2 03/15/20 17:25: Immature Granulocyte % (Auto) 0.6, Neutrophils (%) (Auto) 73.4H, Lymphocytes (%) (Auto) 19.2L, Monocytes (%) (Auto) 6.2H, Eosinophils (%) (Auto) 0.4, Basophils (%) (Auto) 0.2, Neutrophils # (Auto) 9.9H, Lymphocytes # (Auto) 2.6, Monocytes # (Auto) 0.8, Eosinophils # (Auto) 0.1, Basophils # (Auto) 0.0, Nucleated Red Blood Cells % (auto) 0.0, Urine Color YELLOW, Urine Appearance HAZY, Urine pH 6.0, Urine Specific [place] 1.018, Urine Protein NEGATIVE, Urine Glucose (Auto)(UA) NEGATIVE, Urine Ketones (Auto) NEGATIVE, Urine Blood NEGATIVE, Urine Nitrite NEGATIVE, Urine Bilirubin NEGATIVE, Urine Urobilinogen 2.0H, Urine Leukocyte Esterase (Auto) NEGATIVE, Urine WBC (Auto) 1, Urine RBC (Auto) 3, Urine Hyaline Casts (Auto) 0, Urine Bacteria (Auto) NEGATIVE, Urine Squamous Epithelial Cells 1, Urine Calcium Oxalate Cryst (Auto) SMALL, Urine Amorphous Sediment (Auto) SMALLH, Urine Mucus (Auto) SMALL, Urine Sperm (Auto) , Anion Gap 7L, Calcium Level 9.1, Total Bilirubin 0.2, Direct Bilirubin < 0.1, Aspartate Amino Transf (AST/SGOT) 11, Alanine Aminotransferase (ALT/SGPT) 14, Alkaline Phosphatase 83, Total Creatine Kinase 24L, Creatine Kinase MB < 1.0, Creatine Kinase MB Relative Index 4.17H, Troponin I < 0.02, Total Protein 6.6, Albumin 3.0L, Albumin/Globulin Ratio 0.8L, Thyroid Stimulating Hormone (TSH) 0.364L, Free Thyroxine 1.05, Urine Opiates Screen NEGATIVE, Urine Methadone Screen NEGATIVE, Urine Barbiturates Screen NEGATIVE, Urine Phencyclidine Screen NEGATIVE, Urine Amphetamines Screen NEGATIVE, Urine Benzodiazepines Screen NEGATIVE, Urine Cocaine Metabolite Screen NEGATIVE, Urine Cannabinoids Screen NEGATIVE 03/15/20 20:14: Lactic Acid Level 1.1 03/15/20 23:58: Total Creatine Kinase 16L, Creatine Kinase MB < 1.0, Creatine Kinase MB Relative Index 6.25H, Troponin I < 0.02 03/16/20 05:27: Immature Granulocyte % (Auto) 0.6, Neutrophils (%) (Auto) 66.3H, Lymphocytes (%) (Auto) 26.1, Monocytes (%) (Auto) 6.0H, Eosinophils (%) (Auto) 0.6, Basophils (%) (Auto) 0.4, Neutrophils # (Auto) 7.2, Lymphocytes # (Auto) 2.8, Monocytes # (Auto) 0.7, Eosinophils # (Auto) 0.1, Basophils # (Auto) 0.0, Nucleated Red Blood Cells % (auto) 0.0, Anion Gap 10, Calcium Level 8.6, Total Creatine Kinase 32#, Creatine Kinase MB < 1.0, Creatine Kinase MB Relative Index 3.12, Troponin I < 0.02, Magnesium Level 1.7L CBC/BMP Laboratory Tests 03/15/20 17:25 03/16/20 05:27 Microbiology Microbiology 03/15/20 Urine Culture, Received Pending Discharge Medications Scheduled Prenat 115/Iron Fum/Folic/Dss ( 19 Tablet) 1 Each Tablet, 1 TAB PO DAILY, (Reported) Allergies Coded Allergies: Penicillins (Verified Allergy, Intermediate, hives, 11/02/19) latex (Verified Allergy, Intermediate, itching, 11/02/19) pt reports itching with certain latex products polyethylene glycol 3350 (Verified Adverse Reaction, Mild, vomit, 11/02/19) KEE GOODEN MD Mar 16, 2020 12:11
--- NOTE | 2020-03-17 07:51 | ECGEPIP ---
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
== END 2020-03-16 11:40 | disposition home or self-care (01) ==
LOC: M ED 16:57 → M ED INP 19:02 → ENRESERV 19:44 → M PCU 20:29
PROVIDERS: ADMIT Internal Medicine; ATTEND Internal Medicine
DX: O99.352 Diseases of the nervous system complicating pregnancy, second trimester (principal); R55 Syncope and collapse; O99.412 Diseases of the circulatory system complicating pregnancy, second trimester; R00.0 Tachycardia, unspecified; O99.12 Other diseases of the blood and blood-forming organs and certain disorders involving the immune mechanism complicating childbirth; D72.829 Elevated white blood cell count, unspecified; R51 Headache; O99.512 Diseases of the respiratory system complicating pregnancy, second trimester; J45.909 Unspecified asthma, uncomplicated; M79.7 Fibromyalgia; Z79.899 Other long term (current) drug therapy; Z88.0 Allergy status to penicillin; Z88.8 Allergy status to other drugs, medicaments and biological substances; Z91.040 Latex allergy status; Z86.32 Personal history of gestational diabetes; Z87.59 Personal history of other complications of pregnancy, childbirth and the puerperium; Z3A.16 16 weeks gestation of pregnancy
CPT/HCPCS: 36415; 80048; 80076; 80307; 81001; 82550; 82553; 83605; 83735; 84145; 84439; 84443; 84484; 85025; 87086; 93005; 93041; 93970; 94760; 96360; 96361; 96372; 99285; J1650

== ENCOUNTER → 2020-04-30 | Outpatient (REF) | payer OTHER ==
[~2020-04-30] MED LIST changes: +ASPI81CH33 PO; +FIOR1CAP PO; +PREN29TA4 PO
== END ==
LOC: M LAB REF 14:47
PROVIDERS: ATTEND Obstetrics & Gynecology
DX: Z01.419 Encounter for gynecological examination (general) (routine) without abnormal findings (principal)

== ENCOUNTER 2020-07-16 10:34 | Outpatient (CLI) | payer OTHER ==
[~2020-07-16] VITALS: Ht 152.4 cm; Wt 95.1 kg
[~2020-07-16 10:34] MED LIST changes: -ASPI81CH33 PO; -FIOR1CAP PO
[2020-07-16 11:00] VITALS: BP 139/76
[2020-07-16] MEDS ORDERED: PERCOCET 5MG/325MG TAB PO ONE (11:30)
[2020-07-16] MEDS ORDERED: ASPI81CH33 PO (11:36)
[2020-07-16 11:57] LABS: HEMATOCRIT 34.3 % (36.0-47.0); HEMOGLOBIN 10.8 g/dl (12.0-15.5); MEAN CORPUSCULAR HEMOGLOBIN 25.1 pg (27.0-33.0); MEAN CORPUSCULAR HGB CONC 31.5 g/dl (32.0-36.5); MEAN CORPUSCULAR VOLUME 79.8 fl (80.0-96.0); PLATELET COUNT, AUTOMATED 225 10^3/uL (150-450); WHITE BLOOD COUNT 12.3 10^3/uL (4.0-10.0)
[2020-07-16] MEDS ORDERED: ACETAMINOPHEN 500 MG TAB PO ONE (12:00)
[2020-07-16 12:18] LABS: ALT/SGPT 10 U/L (12-78); BILIRUBIN,TOTAL 0.2 MG/DL (0.2-1.0); GLOMERULAR FILTRATION RATE > 60.0 (>60); LDH LACTATE DEHYDROGENASE 145 U/L (84-246); URIC ACID 2.6 MG/DL (2.6-6.0)
[2020-07-16 12:34] LABS: CREATININE,RANDOM URINE 90.4 MG/DL; TOTAL PROTEIN,RANDOM URINE 14.2 MG/DL (0.0-12.0)
--- NOTE | 2020-07-16 15:41 | IPNPDOC ---
Obstetrical Progress Note Date of Service Jul 16, 2020 Subjective 20yo at 33wks presents from OB office with a elevated BP. Has had headaches since Tuesday that has not improved with Tylenol. Also denies vaginal bleeding, LOF or ctx. Reports active movement. O: vss, AF Cat 1 tracing gen: well appearing abd: soft, nttp neuro: grossly intact spot urine wnl ast/alt 8/10, [id number] A/P: 20yo at 33wk, currently normotensive reassuring status -home with Fioricet - f/u tomorrow for OB appt Objective Vital Signs Date Time Temp Pulse Resp B/P (MAP) Pulse Ox O2 Delivery O2 Flow Rate FiO2 07/16/20 11:00 98.6 127 18 139/76 (97) Assessment Variability: Moderate Heart Rate Tracing: Category I Tocometer Contractions: No Assessment and Plan Age: 20 : 2 Status: Reassuring JUNIE CHAUDHARY MD. Jul 16, 2020 15:41
[2020-07-16] MEDS ORDERED: FIOR1CAP PO (15:42)
== END 2020-07-16 15:20 | disposition home or self-care (01) ==
LOC: M LDO 10:34
PROVIDERS: ATTEND Obstetrics & Gynecology
DX: O26.893 Other specified pregnancy related conditions, third trimester (principal); R51.9 Headache, unspecified; Z3A.33 33 weeks gestation of pregnancy
CPT/HCPCS: 36415; 59025; 82247; 82565; 82570; 83615; 84156; 84450; 84460; 84550; 85027; G0378; G0463

== ENCOUNTER 2020-08-12 13:31 | Inpatient (IN) | payer OTHER ==
[~2020-08-12] VITALS: Ht 165.1 cm; Wt 97.7 kg
[2020-08-12] VITALS (8 sets, daily range): BP systolic 128–145; BP diastolic 73–93
[~2020-08-12 13:31] MED LIST changes: +ASPI81CH33 PO; +FIOR1CAP PO
[2020-08-12] MEDS ORDERED: LR 1,000 ML IV SCH (13:48)
[2020-08-12] MEDS ORDERED: LACTATED RINGER'S 1000 ML IV ONE (14:00)
[2020-08-12] MEDS ORDERED: HUMU1INJ2 SC (14:12)
[2020-08-12] MEDS ORDERED: TUMS500C PO (14:12)
[2020-08-12] MEDS ORDERED: ALBU83IN INH (14:13)
[2020-08-12 15:07] LABS: HEMOGLOBIN 11.1 g/dl (12.0-15.5); MEAN CORPUSCULAR HEMOGLOBIN 23.6 pg (27.0-33.0); MEAN CORPUSCULAR HGB CONC 30.8 g/dl (32.0-36.5); MEAN CORPUSCULAR VOLUME 76.6 fl (80.0-96.0); PLATELET COUNT, AUTOMATED 229 10^3/uL (150-450); WHITE BLOOD COUNT 12.5 10^3/uL (4.0-10.0)
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
[2020-08-12 15:26] LABS: CREATININE,RANDOM URINE 83.8 MG/DL; TOTAL PROTEIN,RANDOM URINE 19.2 MG/DL (0.0-12.0)
[2020-08-12 15:52] LABS: ALT/SGPT 10 U/L (12-78); BILIRUBIN,TOTAL 0.2 MG/DL (0.2-1.0); CREATININE FOR GFR 0.51 MG/DL (0.55-1.30); GLOMERULAR FILTRATION RATE > 60.0 (>60); LDH LACTATE DEHYDROGENASE 200 U/L (84-246); URIC ACID 3.5 MG/DL (2.6-6.0)
[2020-08-12] MEDS ORDERED: HumuLIN N INSULIN (NovoLIN N) PER UNIT SC ONE (20:00)
--- NOTE | 2020-08-12 20:19 | IPNPDOC ---
Text Note Date of Service The patient was seen on 08/12/20. NOTE REVIEW PROGRESS TO DATE AT 37 WEEKS SENT TO LABOR BECAUSE CERVICAL CHANGE FROM 4 TO 5 CM IN 2 HOURS. ALSO BOOKED FOR IOL 07/2520. GHTN . RISK FACTORS AGDM 2 ON 8 UNITS NPH AT HS, SHORT INTERVAL PREGNANCIES, BMI 37.9 BIPOLAR . REVIEWED BP TO DATE IN MID RANGE REVIEWED H/H NORMAL, REVIEWED CHEMISTRY NORMAL P/C RATIO .22 NORMAL . WHILE ON MONITOR MINIMAL CONTRACTIONS CATEGORY 1 STRIP BLOOD SUGARS NORMAL MONITORING . PELVIC EXAM PRESENTING PART HIGH CE RVIX POSTERIOR THICK 4 CM EXTERNAL OS INTERNAL OS 2 CM 50% EFFACED . PLAN WAS TO FEED SUPPER MONITOR BLOOD PRESSURE AND BLOOD SUGAR AND HEART AND CONTRACTIONS. IF STABLE PLANNED IOL IN AM PATIENT EXPRESSED UNDERSTANDING OF PLAN . REVIEWED BS Q 4 H NORMAL Ht / Wt Ht / Wt Height:5 Feet 5 Inches Weight: 97.700 Kg Vital Signs Vital Signs Date Time Temp Pulse Resp B/P (MAP) Pulse Ox O2 Delivery O2 Flow Rate FiO2 08/12/20 18:56 98.1 103 18 128/73 (91) 08/12/20 15:06 98 Laboratory Data Laboratory Tests Test 08/12/20 14:50 Creatinine 0.51 MG/DL (0.55-1.30) L Glomerular Filtration Rate > 60.0 (>60) Total Bilirubin 0.2 MG/DL (0.2-1.0) Aspartate Amino Transf (AST/SGOT) < 3 U/L (7-37) L Alanine Aminotransferase (ALT/SGPT) 10 U/L (12-78) L Laboratory Tests 08/12/20 14:50 VS,Fishbone, I+O VS, Fishbone, I+O Laboratory Tests 08/12/20 14:50 Vital Signs Date Time Temp Pulse Resp B/P (MAP) Pulse Ox O2 Delivery O2 Flow Rate FiO2 08/12/20 18:56 98.1 103 18 128/73 (91) 08/12/20 15:06 98 Mark Manzanares MD Aug 12, 2020 20:19
[2020-08-13] VITALS (14 sets, daily range): BP systolic 131–147; BP diastolic 64–90
--- NOTE | 2020-08-13 09:53 | IPNPDOC ---
Text Note Date of Service The patient was seen on 08/13/20. NOTE Accepting care of Ms. Serrano today. She's a 20 yo at 37+1 weeks gestation who is here today for an IOL for GHTN and GDMA2. Her blood pressures have been mildly elevated. No severe range levels. Toxemia labs were negative, to include a pr:cr of 0.22. She takes 8U NPH at bedtime for her GDMA2. Fasting BS this AM was 61. Domo reports feeling well. She denies headaches, RUQ pain, or visual changes. She denies contraction pain, bleeding, or leakage of fluid. Chaperoned by L&D RN Cervix: /-3. Posterior. FHR: Cat I with moderate variability, +accels, no decels. Multiparous cervix, though feels very thick and posterior. Plan for one dose of 50mcg PO cytotec for ripening. All patient questions answered. Juana Chung DO VS,Renny, I+O VS, Renny, I+O Laboratory Tests 08/12/20 14:50 Vital Signs Date Time Temp Pulse Resp B/P (MAP) Pulse Ox O2 Delivery O2 Flow Rate FiO2 08/13/20 08:08 97 18 138/84 (102) 08/13/20 07:46 97.6 08/12/20 15:06 98 I&O- Last 24 Hours up to 6 AM 08/13/20 06:00 Intake Total 1900 ml Balance 1900 ml JUANA CHUNG DO Aug 13, 2020 09:53
[2020-08-13] MEDS ORDERED: miSOPROStol 50 MCG 1/2 TAB (S0191) PO ONE ×2 (10:00→15:00)
[2020-08-13] MEDS ORDERED: LR 1,000 ML IV SCH (19:35)
[2020-08-13] MEDS ORDERED: OXYTOCIN DRIP 30 UNITS in IV 1 EA IV SCH (19:45)
--- NOTE | 2020-08-13 19:49 | IPNPDOC ---
Text Note Date of Service The patient was seen on 08/13/20. NOTE Domo is s/p 2 doses of cytotec. She has intermittent contraction pain, but not severe. Blood pressures normal to mildly elevated. Blood sugars stable. Last value 93 at ~1500. Bedside TAUS confirmed cephalic presenting fetus. FHR Cat I with moderate variability, +accels, no decels. Will start pitocin protocol. Epidural when desired. Will AROM when head descends. All patient questions answered. DO Sheldon VS,Renny, I+O VS, Renny, I+O Vital Signs Date Time Temp Pulse Resp B/P (MAP) Pulse Ox O2 Delivery O2 Flow Rate FiO2 08/13/20 19:00 106 18 140/88 (105) 08/13/20 18:40 98.7 08/12/20 15:06 98 I&O- Last 24 Hours up to 6 AM 08/13/20 06:00 Intake Total 1900 ml Balance 1900 ml JUANA JACKSON DO Aug 13, 2020 19:49
[2020-08-13] MEDS ORDERED: HumuLIN N INSULIN (NovoLIN N) PER UNIT SC SCH (21:00)
[2020-08-13] MEDS ORDERED: ONDANSETRON 4MG/2ML VIAL IV PRN (22:20)
[2020-08-13] MEDS ORDERED: diphenhydrAMINE 50MG/ML VIAL (J1200) IV PRN (22:20)
[2020-08-13] MEDS ORDERED: NALOXONE INJ 0.4MG/1ML VIAL (J2310 PER 1MG) IV PRN (22:20)
[2020-08-13] MEDS ORDERED: LACTATED RINGER'S 1000 ML IV PRN (22:20)
[2020-08-13] MEDS ORDERED: FENTANYL/ROPIVACAINE/NACL BAG 100 ML EPIDURAL SCH (22:20)
[2020-08-13] MEDS ORDERED: ePHEDrine SULFATE 25 MG/5 ML(5MG/ML) SYRINGE IV PRN (22:20)
[2020-08-13] MEDS ORDERED: EPIDURAL COMMENT XX SCH (22:20)
[2020-08-13] MEDS ORDERED: EPIDURAL/PCA KEYS XX PRN (22:20)
[2020-08-13] MEDS ORDERED: REFRIGERATOR IV KEYS XX PRN (22:20)
[2020-08-13] MEDS ORDERED: fentaNYL 100 MCG/2 ML INJECTION (J3010) As Ordered ONE (23:43)
[2020-08-13] MEDS ORDERED: FENTANYL 2MCG/ML ROPIVACAINE 0.2% IN 0.9% NACL 100ML IVBAG As Ordered ONE (23:44)
[2020-08-14] MEDS ORDERED: OXYTOCIN DRIP 30 UNITS in IV 1 EA IV SCH (01:04)
--- NOTE | 2020-08-14 01:10 | DNPDOC ---
[facility] Delivery Note Delivery Note DATE OF DELIVERY: [id number] at ~0030 PREDELIVERY DIAGNOSIS: 37+2 weeks gestation and IOL for GHTN POST DELIVERY DIAGNOSIS: Delivered. PROCEDURE: Spontaneous vaginal delivery DRUM STRAIGHTENER: Dr. Chung ANESTHESIA: None ESTIMATED BLOOD LOSS: 200 mL. FINDINGS: 7 pound 4 ounce male , Score 9/9 DELIVERY SUMMARY: Domo progressed rapidly after her membranes spontaneously ruptured. She felt a strong urge to push at C/C/+2. She began pushing. The bed was broken down and she was prepped for delivery. With excellent effort she delivered her baby after less than 10 minutes of pushing. Presentation was LA with restitution to LOT. The right anterior shoulder delivered with gentle traction followed easily by the remainder of the body. The infant was dried and stimulated on the field and cried vigorously. The infant was placed on the maternal abdomen. The three vessel umbilical cord was then clamped and cut by the FOB after appropriate time delay and under my direction. Third stage was completed with gentle traction on on the cord and it was productive of an intact placenta. The uterus was firmed with massage and pitocin was administered IV bolus. Inspection of the cervix, vagina, and perineum revealed a small, midline 1st degree vaginal floor laceration. This laceration was repaired with 3-0 vicryl suture in the usual fashion after injection of lidocaine for analgesia. There was excellent cosmesis and hemostasis after the repair. The fundus was palpated again and was firm. Sponge, instrument, and needle counts were correct X2. Mother and stable when I left the room. DO RENETTA Payton CHRISTOPHER J. DO Aug 14, 2020 01:10
[2020-08-14] MEDS ORDERED: ACETAMINOPHEN TAB 650MG DOSE (2X325MG) PO PRN (01:15)
[2020-08-14] MEDS ORDERED: BENZOCAINE 20% HEMORRHOIDAL OINTMENT 28GM TUBE TOP PRN (01:15)
[2020-08-14] MEDS ORDERED: DOCUSATE SODIUM 100 MG CAP PO PRN (01:15)
[2020-08-14] MEDS ORDERED: RHOGAM 300 MCG (1500 IU) INJ (J2790) IM SCH (01:15)
[2020-08-14] MEDS ORDERED: MEASLES,MUMPS,RUBELLA VACCINE INJ (MMR-II) (90707) SC SCH (01:15)
[2020-08-14] MEDS ORDERED: IBUPROFEN 600MG TAB PO PRN (01:15)
[2020-08-14] MEDS ORDERED: LIDOCAINE 1% MDV 20ML VIAL SC ONE (01:15)
[2020-08-14] MEDS ORDERED: ONDANSETRON 4MG/2ML VIAL IV PRN (01:15)
[2020-08-14] MEDS: IBUPROFEN 800 MG TAB PO PRN ×3 (02:19→19:45)
[2020-08-14 03:25] VITALS: BP 134/78
[2020-08-14] MEDS: ACETAMINOPHEN 500 MG TAB PO PRN ×2 (03:43→15:22)
[2020-08-14 06:26] VITALS: BP 125/74
[2020-08-14] MEDS: PRENATAL VITAMINS CHEWABLE TABLET PO SCH (08:56)
[2020-08-14 18:00] VITALS: BP 133/78
[2020-08-15] MEDS: ACETAMINOPHEN 500 MG TAB PO PRN ×2 (02:46→09:16)
[2020-08-15 06:00] VITALS: BP 109/55
[2020-08-15] MEDS: PRENATAL VITAMINS CHEWABLE TABLET PO SCH (08:34)
--- NOTE | 2020-08-15 12:15 | IPNPDOC ---
Progress Note Date of Service: Aug 15, 2020 Day#: 1 Progress Note SUBJECT: Domo is a 20yo s/p now PPD#1 (delivered at 29 on 2019). She reports her pain is controlled, tolerating regular diet, voiding spontaneously, and ambulating without difficulty. OBJECTIVE: VITAL SIGNS: Within normal limits, afebrile. Alert and oriented times three. Abdomen: Fundus firm at U-2. Soft, NTTP. ASSESSMENT: Domo is a 20yo s/p now PPD#1 (delivered at 0030 on [id number]). Vitals within normal limits for last 24hrs, afebrile, hemodynamically stable with no evidence of infection. PLAN: 1. Discharge to home today. 2. Tylenol and Motrin for pain. 3. Encourage breast feeding and ambulation. 4. Routine PP visit in 6 weeks in clinic. 5. Discussed return precautions at length. VS, I&O, 24H, Fishbone Vital Signs/I&O Vital Signs Date Time Temp Pulse Resp B/P (MAP) Pulse Ox O2 Delivery O2 Flow Rate FiO2 08/15/20 06:00 98.0 83 16 109/55 (73) 08/14/20 18:00 98 Room Air DYLON DUQUE DO Aug 15, 2020 12:15
== END 2020-08-15 18:15 | disposition home or self-care (01) | DRG 807 ==
LOC: M LDI 13:31 → M OBS 08-14 03:15
PROVIDERS: ADMIT Registered Nurse Maternal Newborn; ATTEND Obstetrics & Gynecology
PROC: 10E0XZZ Delivery of Products of Conception, External Approach (ICD-10-PCS; principal; 2020-08-14)
PROC: 0HQ9XZZ Repair Perineum Skin, External Approach (ICD-10-PCS; 2020-08-14)
DX: O13.4 Gestational [pregnancy-induced] hypertension without significant proteinuria, complicating childbirth (principal); Z37.0 Single live birth; O24.424 Gestational diabetes mellitus in childbirth, insulin controlled; Z3A.37 37 weeks gestation of pregnancy; O99.344 Other mental disorders complicating childbirth; F31.9 Bipolar disorder, unspecified; O99.214 Obesity complicating childbirth; E66.9 Obesity, unspecified; O70.0 First degree perineal laceration during delivery

== ENCOUNTER → 2020-10-20 | Outpatient (CLI) | payer OTHER ==
[~2020-10-20] MED LIST changes: +ALBU83IN INH; +HUMU1INJ2 SC; +TUMS500C PO
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
== END ==
LOC: M RAD 19:41
PROVIDERS: ATTEND Physician Assistant Medical
DX: S49.91XA Unspecified injury of right shoulder and upper arm, initial encounter (principal); W00.0XXA Fall on same level due to ice and snow, initial encounter; Y92.9 Unspecified place or not applicable

== ENCOUNTER 2021-01-09 09:58 | Emergency (ER) | payer OTHER ==
[~2021-01-09] VITALS: Ht 154.9 cm; Wt 98.9 kg
--- NOTE | 2021-01-09 10:32 | REP ---
INDICATION: trauma. COMPARISON: 12/14/2018 TECHNIQUE: Four views FINDINGS: No acute fracture or destructive osseous lesion. The mortise is intact. IMPRESSION: No change from the prior exam. No acute disease. <Electronically signed by Fransisco John > 01/09/21 1022
[2021-01-09 11:03] VITALS: BP 138/76
== END 2021-01-09 11:04 | disposition home or self-care (01) ==
LOC: M ED 09:58
DX: S93.402A Sprain of unspecified ligament of left ankle, initial encounter (principal); W17.2XXA Fall into hole, initial encounter; J45.909 Unspecified asthma, uncomplicated; Y92.9 Unspecified place or not applicable; Y99.9 Unspecified external cause status; K21.9 Gastro-esophageal reflux disease without esophagitis; M79.7 Fibromyalgia; G43.909 Migraine, unspecified, not intractable, without status migrainosus; F41.9 Anxiety disorder, unspecified; F30.9 Manic episode, unspecified; Z88.0 Allergy status to penicillin; Z88.8 Allergy status to other drugs, medicaments and biological substances; Z91.040 Latex allergy status